=== PATIENT | male | born 1955 | race Caucasian/White ===

== ENCOUNTER 2017-08-27 17:37 | Emergency (ER) | payer SELFPAY ==
[2017-08-27 18:11] LABS: #Basophils 0.1 thou/uL (0.0-0.2); #Eosinphils 0.2 thou/uL (0.0-0.7); #Lymphocytes 1.9 thou/uL (1.20-3.40); #Monocytes 0.5 thou/uL (0.11-0.59); #Neutrophils 4.5 thou/uL (1.40-6.50); %Basophils 0.9 % (0.0-1.0); %Eosinophils 2.5 % (0.0-10.0); %Lymphocytes 26.9 % (21.0-51.0); %Monocytes 7.6 % (0.0-10.0); %Neutrophils 62.2 % (42.0-75.0); Hemoglobin 17.4 g/dL (14.0-18.0); Mean Corpuscular HGB CONC 35.1 g/dL (32.0-36.0); Mean Corpuscular Hemoglobin 32.1 pg (27.0-31.0); Mean Corpuscular Volume 91.6 fl (80.0-94.0); Mean Platelet Volume 6.9 fL (7.4-10.4); Platelet Count 101 thou/uL (130-400); RBC Distribution Width 11.8 % (11.5-14.5); Red Blood Cell (RBC) Count 5.41 mill/uL (4.70-6.10); White Blood Cell (WBC) Count 7.2 thou/uL (4.8-10.8)
[2017-08-27 18:19] LABS: ALT (SGPT) 139 U/L (8-55); AST (SGOT) 102 U/L (5-34); Alkaline Phosphatase 71 U/L (40-150); Anion Gap 10 mmol/L (10-20); BUN (Urea Nitrogen) 22 mg/dL (8.4-25.7); Bilirubin, Total 0.7 mg/dL (0.2-1.2); Calc. Creatinine Clearance 0 mL/min (70-130); Calcium 9.7 mg/dL (7.8-10.44); Carbon Dioxide 26 mmol/L (23-31); Chloride 106 mmol/L (98-107); Estimated GFR-MDRD 79; Globulin 3.2 g/dL (2.4-3.5); Glucose 95 mg/dL (80-115); Potassium 4.3 mmol/L (3.5-5.1); Protein, Total 7.2 g/dL (5.8-8.1); Sodium 138 mmol/L (136-145)
[2017-08-27 18:23] LABS: PLT Morphology Comment Appears Decreased; RBC Morphology Normal
[2017-08-27] MEDS ORDERED: Cyclobenzaprine 10 MG TAB ONE (19:57)
[2017-08-27 20:12] LABS: Bilirubin Negative (Negative); Blood, Urine Negative (Negative); Clarity CLEAR (Clear); Glucose, Urine (Dipstick) Negative (Negative); Leukocyte Negative (Negative); Nitrite Negative (Negative); Protein, Urine (Dipstick) Negative (Neg-Trace); Specific Gravity, Urine 1.024 (1.002-1.036)
== END 2017-08-27 20:45 | disposition home or self-care (01) ==
LOC: ERS 17:37
DX: M62.830 Muscle spasm of back (principal); R74.0 Nonspecific elevation of levels of transaminase and lactic acid dehydrogenase [LDH]; E03.9 Hypothyroidism, unspecified; I10 Essential (primary) hypertension; Z79.82 Long term (current) use of aspirin; Z79.899 Other long term (current) drug therapy
CPT/HCPCS: 36415; 80053; 81003; 83605; 84443; 85025; 99283

== ENCOUNTER 2017-11-17 01:40 | Emergency (ER) | payer SELFPAY ==
[2017-11-17 02:16] LABS: #Basophils 0.1 thou/uL (0.0-0.2); #Eosinphils 0.2 thou/uL (0.0-0.7); #Monocytes 0.6 thou/uL (0.11-0.59); #Neutrophils 5.9 thou/uL (1.40-6.50); %Basophils 0.5 % (0.0-1.0); %Eosinophils 2.2 % (0.0-10.0); %Lymphocytes 37.1 % (21.0-51.0); %Monocytes 5.6 % (0.0-10.0); %Neutrophils 54.7 % (42.0-75.0); Hemoglobin 16.2 g/dL (14.0-18.0); Mean Corpuscular HGB CONC 36.4 g/dL (32.0-36.0); Mean Corpuscular Hemoglobin 32.6 pg (27.0-31.0); Mean Corpuscular Volume 89.7 fL (78.0-98.0); Mean Platelet Volume 6.4 fL (7.4-10.4); Platelet Count 129 thou/uL (130-400); RBC Distribution Width 12.5 % (11.5-14.5); Red Blood Cell (RBC) Count 4.96 mill/uL (4.70-6.10); White Blood Cell (WBC) Count 10.8 thou/uL (4.8-10.8)
[2017-11-17 02:28] LABS: Acetaminophen Less than 6.0 mcg/mL (10.0-30.0); Alcohol 228 mg/dL (Less than 10); Salicylate Less than 8.0 mg/dL (15.0-30.0)
[2017-11-17 02:29] LABS: ALT (SGPT) 239 U/L (8-55); AST (SGOT) 208 U/L (5-34); Albumin 4.3 g/dL (3.4-4.8); Alcohol 228 mg/dL (Less than 10); Alkaline Phosphatase 97 U/L (40-150); Anion Gap 18 mmol/L (10-20); BUN (Urea Nitrogen) 20 mg/dL (8.4-25.7); Bilirubin, Total 1.1 mg/dL (0.2-1.2); Calc. Creatinine Clearance 0 mL/min (70-130); Calcium 9.5 mg/dL (7.8-10.44); Carbon Dioxide 21 mmol/L (23-31); Chloride 103 mmol/L (98-107); Estimated GFR-MDRD 79; Globulin 3.5 g/dL (2.4-3.5); Glucose 98 mg/dL (80-115); Potassium 3.7 mmol/L (3.5-5.1); Protein, Total 7.8 g/dL (5.8-8.1); Sodium 138 mmol/L (136-145)
[2017-11-17] MEDS ORDERED: Multivitamins, Adult 10 ML, Thiamine HCl 100 MG, Folic Acid 1 MG in Dextrose 5 %-0.45 %... IV SCH (03:00)
[2017-11-17 07:20] LABS: Medtox Reader # READER 4; Phencyclidine (PCP) Not Detected (NotDetected); THC/Cannabinoid Screen Not Detected (NotDetected)
[2017-11-17 07:21] LABS: Amphetamine Not Detected (NotDetected); Barbiturates Screen Not Detected (NotDetected); Benzodiazepine Screen Detected (NotDetected); Cocaine Metabolite Screen Not Detected (NotDetected); Medtox Control Line Valid? VALID (VALID); Methadone Not Detected (NotDetected); Methamphetamine Not Detected (NotDetected); Opiate Screen Not Detected (NotDetected); Oxycodone Screen Not Detected (NotDetected); Tricyclic Screen Not Detected (NotDetected)
[2017-11-17] MEDS ORDERED: Lorazepam 2 MG/ML VIAL ONE (14:08)
[2017-11-17 16:53] LABS: Free T4 (Free Thyroxine) 0.8 ng/dL (0.70-1.48)
[2017-11-17] MEDS ORDERED: Gabapentin 300 MG CAP PO SCH ×2 (20:00→21:00)
[2017-11-17] MEDS ORDERED: Folic Acid 1 MG TAB PO SCH (20:00)
[2017-11-17] MEDS ORDERED: risperiDONE 3 MG TAB PO SCH (20:00)
[2017-11-17] MEDS ORDERED: Doxazosin 2 MG TAB PO SCH (20:00)
[2017-11-17] MEDS ORDERED: Levothyroxine Sodium 25 MCG TAB PO SCH (20:00)
[2017-11-18] MEDS ORDERED: Levothyroxine Sodium 25 MCG TAB PO SCH (06:00)
[2017-11-18] MEDS ORDERED: Doxazosin 2 MG TAB PO SCH (09:00)
[2017-11-18] MEDS ORDERED: Folic Acid 1 MG TAB PO SCH (09:00)
[2017-11-18] MEDS ORDERED: risperiDONE 3 MG TAB PO SCH (21:00)
--- NOTE | 2017-11-21 12:51 | EKG ---
Test Reason : Blood Pressure : / mmHG Vent. Rate : 092 BPM Atrial Rate : 092 BPM P-R Int : 158 ms QRS Dur : 092 ms QT Int : 366 ms P-R-T Axes : 055 052 043 degrees QTc Int : 452 ms Normal sinus rhythm Normal ECG Confirmed by EVITA CALLAWAY ([id number]), editor sound GRAHAM MCGILL ([id number]) on 11/21/2017 12:51:08 PM Referred By: Confirmed By:EVITA CALLAWAY
== END 2017-11-18 01:07 ==
LOC: ERS 01:40
DX: S41.112A Laceration without foreign body of left upper arm, initial encounter (principal); S41.111A Laceration without foreign body of right upper arm, initial encounter; E03.9 Hypothyroidism, unspecified; I10 Essential (primary) hypertension; F41.9 Anxiety disorder, unspecified; F32.9 Major depressive disorder, single episode, unspecified; Z79.899 Other long term (current) drug therapy; X78.9XXA Intentional self-harm by unspecified sharp object, initial encounter
CPT/HCPCS: 36415; 80053; 80306; 80307; 84439; 84443; 84481; 85025; 93005; 96361; 96365; 96366; 96375; J2060; J3411; J7042

== ENCOUNTER 2018-01-20 16:40 | Emergency (ER) | payer SELFPAY ==
[2018-01-20 17:53] LABS: Amphetamine Not Detected (NotDetected); Barbiturates Screen Not Detected (NotDetected); Benzodiazepine Screen Not Detected (NotDetected); Cocaine Metabolite Screen Not Detected (NotDetected); Medtox Reader # READER 4; Methadone Not Detected (NotDetected); Methamphetamine Not Detected (NotDetected); Opiate Screen Not Detected (NotDetected); Phencyclidine (PCP) Not Detected (NotDetected); THC/Cannabinoid Screen Not Detected (NotDetected); Tricyclic Screen Not Detected (NotDetected)
[2018-01-20 17:54] LABS: Medtox Control Line Valid? VALID (VALID); Oxycodone Screen Not Detected (NotDetected)
[2018-01-20 18:02] LABS: #Basophils 0.1 thou/uL (0.0-0.2); #Eosinphils 0.1 thou/uL (0.0-0.7); #Lymphocytes 3.4 thou/uL (1.20-3.40); #Monocytes 0.7 thou/uL (0.11-0.59); #Neutrophils 7.3 thou/uL (1.40-6.50); %Basophils 0.8 % (0.0-1.0); %Eosinophils 1.1 % (0.0-10.0); %Lymphocytes 29.2 % (21.0-51.0); %Monocytes 5.8 % (0.0-10.0); %Neutrophils 63.1 % (42.0-75.0); Mean Corpuscular HGB CONC 35.8 g/dL (32.0-36.0); Mean Corpuscular Hemoglobin 32.4 pg (27.0-31.0); Mean Corpuscular Volume 90.5 fL (78.0-98.0); Mean Platelet Volume 6.3 fL (7.4-10.4); Platelet Count 142 thou/uL (130-400); RBC Distribution Width 12.7 % (11.5-14.5); Red Blood Cell (RBC) Count 5.26 mill/uL (4.70-6.10); White Blood Cell (WBC) Count 11.6 thou/uL (4.8-10.8)
[2018-01-20 18:25] LABS: ALT (SGPT) 203 U/L (8-55); AST (SGOT) 266 U/L (5-34); Acetaminophen Less than 6.0 mcg/mL (10.0-30.0); Albumin 4.1 g/dL (3.4-4.8); Alcohol 261 mg/dL (Less than 10); Alkaline Phosphatase 84 U/L (40-150); Anion Gap 16 mmol/L (10-20); BUN (Urea Nitrogen) 17 mg/dL (8.4-25.7); Bilirubin, Total 1.5 mg/dL (0.2-1.2); CK (CPK) 89 U/L (30-200); Calc. Creatinine Clearance 0 mL/min (70-130); Calcium 8.8 mg/dL (7.8-10.44); Carbon Dioxide 21 mmol/L (23-31); Chloride 110 mmol/L (98-107); Estimated GFR-MDRD 88; Globulin 3.3 g/dL (2.4-3.5); Glucose 108 mg/dL (80-115); Protein, Total 7.4 g/dL (5.8-8.1); Salicylate Less than 8.0 mg/dL (15.0-30.0); Sodium 143 mmol/L (136-145)
== END 2018-01-20 19:33 | disposition home or self-care (01) ==
LOC: ERS 16:40
DX: S41.112A Laceration without foreign body of left upper arm, initial encounter (principal); F10.129 Alcohol abuse with intoxication, unspecified; E03.9 Hypothyroidism, unspecified; I10 Essential (primary) hypertension; Z79.899 Other long term (current) drug therapy; X78.9XXA Intentional self-harm by unspecified sharp object, initial encounter
CPT/HCPCS: 36415; 80053; 80306; 80307; 82550; 84443; 85025; 93005

== ENCOUNTER 2018-07-24 23:26 | Emergency (ER) | payer SELFPAY ==
[2018-07-25 00:23] LABS: Bilirubin Negative (Negative); Blood, Urine Negative (Negative); Clarity CLEAR (Clear); Glucose, Urine (Dipstick) Negative (Negative); Leukocyte Negative (Negative); Nitrite Negative (Negative); Protein, Urine (Dipstick) Negative (Neg-Trace); Specific Gravity, Urine 1.002 (1.002-1.036); pH, Urine 5.5 (5.0-9.0)
[2018-07-25 00:32] LABS: Amphetamine Not Detected (NotDetected); Barbiturates Screen Not Detected (NotDetected); Benzodiazepine Screen Not Detected (NotDetected); Cocaine Metabolite Screen Not Detected (NotDetected); Medtox Reader # READER 4; Methadone Not Detected (NotDetected); Methamphetamine Not Detected (NotDetected); Opiate Screen Not Detected (NotDetected); Oxycodone Screen Not Detected (NotDetected); Phencyclidine (PCP) Not Detected (NotDetected); THC/Cannabinoid Screen Not Detected (NotDetected); Tricyclic Screen Not Detected (NotDetected)
[2018-07-25 00:33] LABS: Medtox Control Line Valid? VALID (VALID)
[2018-07-25 00:52] LABS: Hemoglobin 15.1 g/dL (14.0-18.0); Mean Corpuscular Hemoglobin 33.6 pg (27.0-31.0); Mean Corpuscular Volume 93.3 fL (78.0-98.0); RBC Distribution Width 12.3 % (11.5-14.5); Red Blood Cell (RBC) Count 4.51 mill/uL (4.70-6.10); White Blood Cell (WBC) Count 7.2 thou/uL (4.8-10.8)
[2018-07-25 01:04] LABS: ALT (SGPT) 197 U/L (8-55); AST (SGOT) 193 U/L (5-34); Acetaminophen Less than 6.0 mcg/mL (10.0-30.0); Alcohol 246 mg/dL (Less than 10); Alkaline Phosphatase 83 U/L (40-150); Anion Gap 16 mmol/L (10-20); BUN (Urea Nitrogen) 5 mg/dL (8.4-25.7); Bilirubin, Total 1.2 mg/dL (0.2-1.2); Calc. Creatinine Clearance 0 mL/min (70-130); Calcium 9.3 mg/dL (7.8-10.44); Carbon Dioxide 22 mmol/L (23-31); Chloride 104 mmol/L (98-107); Estimated GFR-MDRD 80; Globulin 3.1 g/dL (2.4-3.5); Glucose 119 mg/dL (80-115); Potassium 3.6 mmol/L (3.5-5.1); Protein, Total 7.1 g/dL (5.8-8.1); Salicylate Less than 8.0 mg/dL (15.0-30.0); Sodium 138 mmol/L (136-145)
[2018-07-25 01:06] LABS: #Eosinphils 0.2 thou/uL (0.0-0.7); #Lymphocytes 1.8 thou/uL (1.20-3.40); #Monocytes 0.3 thou/uL (0.11-0.59); #Neutrophils 4.8 thou/uL (1.40-6.50); %Basophils 0.2 % (0.0-1.0); %Eosinophils 3.1 % (0.0-10.0); %Monocytes 4.5 % (0.0-10.0); %Neutrophils 67.1 % (42.0-75.0); Mean Platelet Volume 7.5 fL (7.4-10.4); Platelet Count 69 thou/uL (130-400); Platelet Morphology Comment Appears Decreased; RBC Morphology Normal
[2018-07-25] MEDS ORDERED: Bacitracin Zinc 1 Packet ONE (03:11)
[2018-07-25 04:06] LABS: Troponin I Less than 0.010 ng/mL (< 0.028)
[2018-07-25] MEDS ORDERED: Nicotine 14 MG PATCH TOP SCH (04:30)
[2018-07-25] MEDS ORDERED: Ibuprofen 200 MG TAB ONE (04:36)
[2018-07-25 07:33] LABS: Troponin I Less than 0.010 ng/mL (< 0.028)
--- NOTE | 2018-07-25 08:17 | RAD ---
CHEST 1 VIEW: Date: 07/25/18 INDICATION: Left arm laceration, chest pain. COMPARISON: None. FINDINGS: Lungs are clear. Heart size is normal. Chronic osseous changes are present. No definite acute osseous abnormality is noted. IMPRESSION: No acute abnormality. POS: BH
[2018-07-25] MEDS ORDERED: busPIRone HCl 5 MG TAB PO SCH (09:30)
[2018-07-25] MEDS ORDERED: Levothyroxine Sodium 25 MCG TAB PO SCH (09:30)
[2018-07-26] MEDS ORDERED: Levothyroxine Sodium 25 MCG TAB PO SCH (06:00)
== END 2018-07-25 16:15 | disposition home or self-care (01) ==
LOC: ERS 23:26
DX: S60.812A Abrasion of left wrist, initial encounter (principal); S40.212A Abrasion of left shoulder, initial encounter; E03.9 Hypothyroidism, unspecified; F32.9 Major depressive disorder, single episode, unspecified; I10 Essential (primary) hypertension; F17.210 Nicotine dependence, cigarettes, uncomplicated; Z79.899 Other long term (current) drug therapy; W26.9XXA Contact with unspecified sharp object(s), initial encounter
CPT/HCPCS: 36415; 71045; 80053; 80306; 80307; 81003; 84443; 84484; 85025; 93005

== ENCOUNTER 2018-09-11 12:17 | Emergency (ER) | payer SELFPAY ==
--- NOTE | 2018-09-11 13:05 | RAD ---
XR Foot Lt 3 View STANDARD: 09/11/2018 12:22 PM CLINICAL INDICATION: Pain, infection COMPARISON: None. FINDINGS: Fracture:No fracture. Arthropathy:Moderate arthropathy. Most pronounced at the first ray. Incidental findings:None of significance. IMPRESSION: 1. No acute osseous abnormality.
[2018-09-11] MEDS ORDERED: Ketorolac Tromethamine 30 MG/ML VIAL ONE (13:26)
== END 2018-09-11 13:34 | disposition home or self-care (01) ==
LOC: ERS 12:17
DX: L02.612 Cutaneous abscess of left foot (principal); Z71.6 Tobacco abuse counseling; E03.9 Hypothyroidism, unspecified; I10 Essential (primary) hypertension; F17.210 Nicotine dependence, cigarettes, uncomplicated
CPT/HCPCS: 96372; 99406; J1885

== ENCOUNTER 2018-10-01 13:09 | Inpatient (IN) | payer SELFPAY ==
--- NOTE | 2018-10-01 13:41 | RAD ---
XR Foot Lt 3 View STANDARD History: [Foot pain. Infection in between toes.] Comparison: Radiograph September 11, 2018 Findings: There is concern for possible second density seen between the great toe and second toe. No acute fracture. No periostitis or erosions. Impression: Suggestion of subcutaneous emphysema between the second toe and the great toe at the lev el of the proximal phalanges. If there is concern for osteomyelitis, MRI is recommended.
[2018-10-01] MEDS ORDERED: Clindamycin/D5W 900 mg/50 ml Premix Bag ONE (13:53)
[2018-10-01 14:02] LABS: #Eosinphils 0.2 thou/uL (0.0-0.7); #Lymphocytes 1.5 thou/uL (1.20-3.40); #Monocytes 0.6 thou/uL (0.11-0.59); #Neutrophils 5.9 thou/uL (1.40-6.50); %Basophils 0.4 % (0.0-1.0); %Eosinophils 2.9 % (0.0-10.0); %Lymphocytes 17.9 % (21.0-51.0); %Monocytes 7.2 % (0.0-10.0); %Neutrophils 71.6 % (42.0-75.0); Hemoglobin 16.5 g/dL (14.0-18.0); Mean Corpuscular HGB CONC 35.2 g/dL (32.0-36.0); Mean Corpuscular Hemoglobin 32.9 pg (27.0-31.0); Mean Corpuscular Volume 93.3 fL (78.0-98.0); Platelet Count 102 thou/uL (130-400); RBC Distribution Width 12.6 % (11.5-14.5); White Blood Cell (WBC) Count 8.2 thou/uL (4.8-10.8)
[2018-10-01 14:15] LABS: ALT (SGPT) 67 U/L (8-55); AST (SGOT) 54 U/L (5-34); Albumin 4.2 g/dL (3.4-4.8); Alkaline Phosphatase 72 U/L (40-150); Anion Gap 14 mmol/L (10-20); BUN (Urea Nitrogen) 16 mg/dL (8.4-25.7); Bilirubin, Total 1.5 mg/dL (0.2-1.2); Calc. Creatinine Clearance 0 mL/min (70-130); Calcium 9.8 mg/dL (7.8-10.44); Carbon Dioxide 25 mmol/L (23-31); Chloride 104 mmol/L (98-107); Estimated GFR-MDRD 75; Globulin 3.2 g/dL (2.4-3.5); Glucose 98 mg/dL (80-115); Potassium 4.6 mmol/L (3.5-5.1); Protein, Total 7.4 g/dL (5.8-8.1); Sodium 138 mmol/L (136-145)
[2018-10-01] MEDS ORDERED: Morphine 4 MG/ML VIAL ONE (14:43)
[2018-10-01] MEDS ORDERED: Ondansetron ODT 8 MG TAB ONE (14:44)
[2018-10-01] MEDS ORDERED: Cefepime 2 GM VIAL ONE (15:23)
[2018-10-01] MEDS ORDERED: Piperacillin/Tazobactam 4.5 GM VIAL ONE ×2 (15:42→16:26)
[2018-10-01] MEDS ORDERED: Vancomycin HCl 1 GM in Premix Bag 1 BAG IVPB SCH ×3 (18:00→21:00)
[2018-10-01] MEDS ORDERED: Ondansetron ODT 4 MG TAB PO PRN (20:10)
[2018-10-01] MEDS ORDERED: hydrALAZINE 20 MG/ML VIAL SLOW IVP PRN (20:10)
[2018-10-01] MEDS ORDERED: Acetaminophen 325 MG TAB PO PRN (20:10)
[2018-10-01] MEDS ORDERED: Ondansetron PF 4 MG/2 ML Vial IVP PRN (20:10)
[2018-10-01] MEDS: HYDROcodone/Acetaminophen 5/325 mg Tablet PO PRN (20:39)
[2018-10-01 20:58] VITALS: BMI 27.4
[2018-10-01] MEDS: Nicotine 14 MG PATCH TD SCH (21:19)
[2018-10-01 21:27] LABS: Free T4 (Free Thyroxine) 1.18 ng/dL (0.70-1.48); Thyroid Stimulating Hormone 6.1509 uIU/mL (0.35-4.94)
--- NOTE | 2018-10-01 21:52 | HP ---
The patient's primary care is through the [facility]. HISTORY OF PRESENT ILLNESS: Mr. Troncoso is a pleasant 63-year-old gentleman, who has a history of hypertension as well as hypothyroidism. He also smokes cigarettes daily. 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 He had come to the emergency room few days ago and was prescribed Bactrim, but this did not help. He continued to work during this time as well. The swelling got progressively worse and he started having drainage. He also says that he got so sick that he started having chills and a decrease in his appetite as well as having some nausea and for this reason, he came into the emergency room for evaluation. In the ER, he was found to have redness and discoloration of the toe and an x-ray demonstrated some subcutaneous emphysema between the second and great toe on the left foot and for this reason, he is being admitted for further evaluation. REVIEW OF SYSTEMS: All systems were reviewed and are negative except for that mentioned in the history of present illness. PAST MEDICAL HISTORY: Significant for hypertension and hypothyroidism. PAST SURGICAL HISTORY: He broke his left leg, but there was no surgical repair. ALLERGIES: NO KNOWN DRUG ALLERGIES. SOCIAL HISTORY: He is . He has 2 children. He smokes about a pack a day for 40 years. He says he drinks only seldom. FAMILY HISTORY: No history of any heritable diseases. MEDICATIONS: He says he used to be on lisinopril, but no longer takes this and takes a multivitamin. PHYSICAL EXAMINATION: GENERAL: He is alert and oriented. He appears to be in no acute distress. He is well developed and well nourished. VITAL SIGNS: Blood pressure was 143/80, heart rate 85, respiratory rate of 18, temperature is 97.9. HEENT: His pupils are equal, round, and reactive to light. Extraocular muscles are intact. His sclerae are anicteric. Throat, there is no erythema, no exudates. NECK: No adenopathy. No bruits. LUNGS: Clear to auscultation. There is no wheezing, no rales, no rhonchi. CARDIOVASCULAR: He had a normal S1, S2. There is no S3 or S4. No murmurs, clicks or rubs. ABDOMEN: Obese. It is soft, nontender, and nondistended. Positive for bowel sounds. There is no rebound. No guarding. No organomegaly. EXTREMITIES: There is no edema and no joint effusions. NEUROLOGIC: His cranial nerves 2 through 12 are grossly intact and his muscle strength is 5/5 in both his upper and lower extremities. SKIN AND INTEGUMENT: On the left foot, between the first and second toe, there is some serosanguineous drainage and also the second toe appears to be irregular and also enlarged and is exquisitely tender to palpation. He also has bunions on both feet. He also has some skin discoloration suggestive of chronic venous stasis. LABORATORY DATA: Lab results, the white blood cell count is 8.2, hemoglobin 16.5, hematocrit is 46.7, and platelet count is 102. The sodium is 138, potassium 4.6, chloride is 104, CO2 is 25, BUN of 16, creatinine 1.01, glucose is 98, total bilirubin is 1.5, AST is 54, ALT is 67. Again, on plain x-ray, he had some subcutaneous emphysema between the second and great toe to the level of the proximal phalanges. ASSESSMENT: 1. This is a pleasant 63-year-old gentleman, who presents to the emergency room with cellulitis of the foot, which has failed outpatient treatment. There is also concern that there could be deeper and infectious involvement based on the x-ray of the foot. Therefore, he will be admitted to the medical floor, started on empiric IV antibiotics. We will obtain an MRI of the foot to rule out osteomyelitis and if this is present, he may need a surgical consultation. We will also consult Wound Care. His risk factors for nonhealing include his current job as well as the tobacco abuse. 2. Hypertension. Currently, his blood pressure is controlled. We will place him on p.r.n. medication as he said he was not on any scheduled medicine at this time. 3. Hypothyroidism. He appears to be clinically euthyroid. We will check his thyroid functions as he does not appear to be on any supplementation. 4. Tobacco abuse. He has been counseled on the need to quit and says he would be willing to try a nicotine patch. Job ID: [id number]
[2018-10-02] MEDS: Piperacillin/Tazobactam 3.375 GM in Sodium Chloride 0.9% 100 ML IVPB SCH ×4 (00:02→18:25)
[2018-10-02] MEDS: HYDROcodone/Acetaminophen 5/325 mg Tablet PO PRN ×6 (00:02→21:31)
[2018-10-02] MEDS: Vancomycin HCl 1.25 GM in Sodium Chloride 0.9% 250 ML 250 ML IVPB SCH ×2 (04:00→16:31)
[2018-10-02] MEDS: Famotidine 20 MG TAB PO SCH ×3 (07:41→20:40)
[2018-10-02] MEDS: Enoxaparin Sodium 40 MG/0.4 ML SYRINGE SC SCH (07:41)
[2018-10-02 07:59] LABS: #Eosinphils 0.3 thou/uL (0.0-0.7); #Lymphocytes 1.3 thou/uL (1.20-3.40); #Monocytes 0.5 thou/uL (0.11-0.59); #Neutrophils 5.1 thou/uL (1.40-6.50); %Basophils 0.6 % (0.0-1.0); %Eosinophils 3.7 % (0.0-10.0); %Lymphocytes 17.9 % (21.0-51.0); %Monocytes 7.3 % (0.0-10.0); %Neutrophils 70.5 % (42.0-75.0); Hemoglobin 15.1 g/dL (14.0-18.0); Mean Corpuscular HGB CONC 34.7 g/dL (32.0-36.0); Mean Corpuscular Hemoglobin 32.2 pg (27.0-31.0); Mean Corpuscular Volume 92.6 fL (78.0-98.0); Mean Platelet Volume 7.1 fL (7.4-10.4); Platelet Count 97 thou/uL (130-400); RBC Distribution Width 12.4 % (11.5-14.5); Red Blood Cell (RBC) Count 4.69 mill/uL (4.70-6.10); White Blood Cell (WBC) Count 7.2 thou/uL (4.8-10.8)
[2018-10-02 08:11] LABS: Anion Gap 12 mmol/L (10-20); BUN (Urea Nitrogen) 20 mg/dL (8.4-25.7); Calc. Creatinine Clearance 80 mL/min (70-130); Calcium 8.8 mg/dL (7.8-10.44); Carbon Dioxide 25 mmol/L (23-31); Chloride 103 mmol/L (98-107); Estimated GFR-MDRD 67; Glucose 89 mg/dL (80-115); Potassium 4.4 mmol/L (3.5-5.1); Sodium 136 mmol/L (136-145)
--- NOTE | 2018-10-02 11:47 | MRI ---
MR of the left forefoot and midfoot without contrast INDICATION: History of left second toe cellulitis; concern for osteomyelitis COMPARISON: Left foot radiograph dated October 01, 2018 FINDINGS: There is abnormal marrow signal intensity and cortical irregularity involving the medial as pect of the second digit proximal phalangeal shaft and phalangeal head. Additional signal abnormality is seen involving the second digit middle phalanx. There is soft tissue swelling involvin g the left second digit predominantly medially. No definite drainable fluid collection is evident. There is a bifid tibial great toe sesamoid. There is moderate great toe MTP osteoarthrosis. The Lisfr anc ligament is intact. IMPRESSION: Cellulitis of the left foot second digit with changes of osteomyelitis involving the medi al aspect of the left second digit proximal phalangeal shaft and head. There is also abnormal marrow signal involving the left second digit middle phalanx also suspicious for changes of early ost eomyelitis.
--- NOTE | 2018-10-02 15:13 | PDOC.PN ---
- Subjective Encounter Start Date: 10/02/18 Encounter Start Time: 15:11 Mr. Troncoso was seen today in follow-up of infection in the 2nd toe of the left foot. He does not have any complaints. He still notes some soreness in the 2nd toe. - Objective Resuscitation Status - Order Detail: 10/01/18 18:04 Resuscitation Status Routine Resuscitation Status: FULL: Full Resuscitation MAR Reviewed: Yes Vital Signs & Weight: Vital Signs (12 hours) Temp Pulse Resp BP Pulse Ox 10/02/18 08:00 100 10/02/18 07:15 97.9 F 67 18 118/77 100 Weight Weight 180 lb 8 oz Result Diagrams: 10/02/18 07:19 10/02/18 07:19 Phys Exam - Physical Examination HEENT: PERRLA Respiratory: no wheezing, no rales, no rhonchi, clear to auscultation bilateral Cardiovascular: RRR, no significant murmur, no rub Gastrointestinal: soft, non-tender, no distention, positive bowel sounds + erythema and swelling of the 2nd toe Neurological: non-focal, normal sensation Dx/Plan (1) Osteomyelitis of second toe of left foot Code(s): M86.9 - OSTEOMYELITIS, UNSPECIFIED Status: Acute (2) Tobacco abuse Code(s): Z72.0 - TOBACCO USE Status: Acute (3) Hypertension Code(s): I10 - ESSENTIAL (PRIMARY) HYPERTENSION Status: Acute (4) Hypothyroidism Code(s): E03.9 - HYPOTHYROIDISM, UNSPECIFIED Status: Acute - Plan * Osteomyelitis of the 2nd toe of the left foot- continue IV antibiotics, Vancomycin and Zosyn * MRI results were noted. He has Osteomyelitis of the 2nd toe * Will consult ID. * HTN- blood pressure is controlled off medication so far * Hypothyroidism- - his free T4 is normal ( subclinical hypothyroidism)- will monitor
[2018-10-02] MEDS: Nicotine 14 MG PATCH TD SCH (20:40)
[2018-10-02 22:30] LABS: HBSAB Concentration 2.88 mIU/mL; HBSAg Index 0.34 S/CO (0-0.99); Hep B Surf AB Non-Reactive (NonReactive); Hep B Surf Ag Non-Reactive S/CO (NonReactive)
[2018-10-02 22:42] LABS: Hep C IgG Ab Reflex HepC Qnt (NonReactive); Hep C Index 13.33 S/CO (0-0.79)
[2018-10-03] MEDS: Piperacillin/Tazobactam 3.375 GM in Sodium Chloride 0.9% 100 ML IVPB SCH ×5 (00:35→23:29)
[2018-10-03] MEDS: HYDROcodone/Acetaminophen 5/325 mg Tablet PO PRN ×5 (01:26→20:25)
--- NOTE | 2018-10-03 02:21 | CON ---
DATE OF CONSULTATION: 10/02/2018 REASON FOR CONSULTATION: Left second toe inflammatory changes. HISTORY OF PRESENT ILLNESS: A 63-year-old gentleman with history of hypertension and chronic smoking, who has developed inflammatory changes with progressively worsening pain in the left second toe medial aspect associated with swelling. He went to the emergency room few days ago, was given Bactrim, but that did not result in improvement and he was eventually admitted. The patient has had an MRI, which showed findings consistent with osteomyelitis of the second toe. Other than that, he denies any headaches. No visual symptoms, sore throat, odynophagia, or dysphagia. No cough, sputum production, or chest pain. No abdominal pain or diarrhea. No genitourinary symptoms. No other joint symptoms. PAST MEDICAL HISTORY: Hypertension and hypothyroidism. PAST SURGICAL HISTORY: Leg fracture, which was managed with cast. ALLERGIES: NONE. SOCIAL HISTORY: . Current smoker. Drinks rarely. 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 FAMILY HISTORY: Noncontributory. CURRENT MEDICATIONS: 1. Tylenol. 2. [place]. 3. Lovenox. 4. Pepcid. 5. Apresoline. 6. Zofran. 7. Zosyn. 8. Vancomycin. PHYSICAL EXAMINATION: VITAL SIGNS: T-max 98.1, blood pressure 120/70, pulse 70, and respirations 16. SKIN: Shows the left second toe with slit-like opening and a pinhole in the middle aspect of this slit. In the medial aspect of the left second toe around this slit-like wound, there is an area of blanching of the skin and hyperkeratosis. There is moderate erythema surrounding the area. The area is markedly tender. LYMPH: No lymphadenopathy. HEENT: Ocular movements conjugate. Oral cavity with no remaining [place] teeth. NECK: Supple. No jugular vein distention or carotid bruits. LUNGS: Symmetric. Clear breath sounds. HEART: S1, S2. Regular rate. No S3 or S4. ABDOMEN: Soft, not distended or tender. No ascites. : No bladder distention. EXTREMITIES: Pulses are 1+ in dorsalis pedis. No edema. Moves extremities equally. NEURO: Cognitive function appears to be intact. LABORATORY DATA: White cell count 8.2 and 7.2, hemoglobin 15, and platelets 97 with 70% neutrophils. Sodium 138, creatinine 1.01, AST 54, ALT 67, and TSH 6.1. Microbiology with Staphylococcus aureus, pending susceptibilities. IMAGING STUDIES: The MRI showed findings consistent with osteomyelitis of the left second toe. Foot x-ray with subcutaneous emphysema between the second and great toe at the level of proximal phalanges. ASSESSMENT: Chronic smoking, intertrigo with pressure injury to the medial aspect of the left second toe with evidence of wound and osteomyelitis of the proximal phalanx. DISCUSSION: The patient has good vascular supply. The management will include either debridement of the area and then antimicrobial therapy guided by the culture results or a full amputation of the toe. Recommend consultation with internet merchant. Amputation is more likely to result in a permanent resolution of the process. In view of the thrombocytopenia and the abnormal liver function tests, possibility of chronic liver disease is considered. We advised hepatitis C serological testing and liver ultrasound. Job ID: [id number]
[2018-10-03] MEDS: Vancomycin HCl 1.25 GM in Sodium Chloride 0.9% 250 ML 250 ML IVPB SCH ×2 (04:32→15:44)
[2018-10-03] MEDS: Famotidine 20 MG TAB PO SCH ×2 (08:02→20:25)
[2018-10-03] MEDS: Enoxaparin Sodium 40 MG/0.4 ML SYRINGE SC SCH (08:02)
--- NOTE | 2018-10-03 08:49 | ULT ---
RIGHT UPPER QUADRANT ULTRASOUND: Date: 10/03/18 INDICATION: Abnormal liver panel and thrombocytopenia. COMPARISON: None. FINDINGS: There is a coarse echotexture of the liver with nodular contour, suspicious for cirrhosis. No focal h epatic lesion is evident. Gallbladder is normal appearing. No sonographic Tate's sign reported. Com mon bile duct measures 4 mm. Right kidney measures 10.5 cm in length. No focal renal lesion or hydron ephrosis evident. Visualized aspects of the pancreas are unremarkable appearing. IMPRESSION: Coarse echotexture of the liver with nodular contour suspicious for underlying cirrhosis. POS: BH
--- NOTE | 2018-10-03 14:03 | PDOC.PN ---
- Subjective Encounter Start Date: 10/03/18 Encounter Start Time: 13:00 Mr. Troncoso was seen today in follow-up of osteomyelitis of the toe. He notes continued soreness in the toe. He also has an occasional feeling of dizziness and lightheadedness. Currently he feels fine. - Objective Resuscitation Status - Order Detail: 10/01/18 18:04 Resuscitation Status Routine Resuscitation Status: FULL: Full Resuscitation MAR Reviewed: Yes Vital Signs & Weight: Vital Signs (12 hours) Temp Pulse Resp BP Pulse Ox 10/03/18 12:43 97.9 F 64 18 119/74 94 L 10/03/18 08:18 98.3 F 68 16 130/83 96 10/03/18 05:38 97.9 F 71 15 161/73 H 93 L Weight Admit Weight 180 lb 8 oz Weight 180 lb 8 oz Result Diagrams: 10/02/18 07:19 10/02/18 07:19 Phys Exam - Physical Examination HEENT: PERRLA Respiratory: no wheezing, no rales, no rhonchi, clear to auscultation bilateral Cardiovascular: RRR, no significant murmur, no rub Gastrointestinal: soft, non-tender, no distention, positive bowel sounds Musculoskeletal: pulses present, edema present + dark discoloration of the 2nd toe, with some serous drainage Neurological: non-focal, normal sensation, moves all 4 limbs Dx/Plan (1) Osteomyelitis of second toe of left foot Code(s): M86.9 - OSTEOMYELITIS, UNSPECIFIED Status: Acute (2) Tobacco abuse Code(s): Z72.0 - TOBACCO USE Status: Acute (3) Hypertension Code(s): I10 - ESSENTIAL (PRIMARY) HYPERTENSION Status: Acute (4) Hypothyroidism Code(s): E03.9 - HYPOTHYROIDISM, UNSPECIFIED Status: Acute - Plan * Osteomyelitis of the toe- wound culture is growing Staph which appears to be MSSA. * Will continue the current antibiotics * ID recommendations noted- will consult Podiatry * HTN- blood pressure is stable * Hypothyroidism- stable subclinical hypothyroidism.
[2018-10-03 15:27] LABS: Vancomycin, Trough 12.7 ug/mL
[2018-10-03] MEDS: Nicotine 14 MG PATCH TD SCH (20:26)
[2018-10-04] MEDS: HYDROcodone/Acetaminophen 5/325 mg Tablet PO PRN ×5 (00:37→22:09)
[2018-10-04] MEDS: Vancomycin HCl 1.25 GM in Sodium Chloride 0.9% 250 ML 250 ML IVPB SCH ×2 (03:29→16:42)
[2018-10-04] MEDS: Piperacillin/Tazobactam 3.375 GM in Sodium Chloride 0.9% 100 ML IVPB SCH ×2 (05:54→11:47)
[2018-10-04] MEDS: Enoxaparin Sodium 40 MG/0.4 ML SYRINGE SC SCH (08:43)
[2018-10-04] MEDS: Famotidine 20 MG TAB PO SCH ×2 (08:43→20:08)
[2018-10-04] MEDS: Multivitamin W/ Minerals 1 TAB PO SCH (09:54)
[2018-10-04] MEDS: Levothyroxine Sodium 50 MCG TAB PO SCH (09:54)
--- NOTE | 2018-10-04 14:31 | PDOC.PN ---
- Subjective Encounter Start Date: 10/04/18 Encounter Start Time: 14:29 Subjective: feels OK. no new complaints - Objective Resuscitation Status - Order Detail: 10/01/18 18:04 Resuscitation Status Routine Resuscitation Status: FULL: Full Resuscitation MAR Reviewed: Yes Vital Signs & Weight: Vital Signs (12 hours) Temp Pulse Resp BP Pulse Ox 10/04/18 08:00 97.7 F 66 18 128/75 94 L Weight Admit Weight 180 lb 8 oz Weight 180 lb 8 oz I&O: 10/03/18 10/04/18 10/05/18 06:59 06:59 06:59 Intake Total 3110 240 Balance 3110 240 Result Diagrams: 10/02/18 07:19 10/02/18 07:19 Additional Labs: Microbiology 10/01/18 14:12 Foot - Pending Bacterial Culture - Preliminary Staphylococcus aureus Laboratory Tests 10/01/18 10/02/18 20:34 20:49 TSH 3rd Generation 6.1509 H Hepatitis C Antibody Reflex HepC Qnt H Phys Exam - Physical Examination Constitutional: NAD HEENT: PERRLA, moist MMs, sclera anicteric, oral pharynx no lesions Neck: no nodes, no JVD, supple, full ROM Respiratory: no wheezing, no rales, no rhonchi, clear to auscultation bilateral Cardiovascular: RRR, no significant murmur, no rub Gastrointestinal: soft, non-tender, no distention, positive bowel sounds Musculoskeletal: no edema, pulses present Left foot in dressing. palpable post tibial left foot Neurological: non-focal, normal sensation, moves all 4 limbs Psychiatric: normal affect, A&O x 3 Skin: no rash Dx/Plan (1) Hypertension Code(s): I10 - ESSENTIAL (PRIMARY) HYPERTENSION Status: Acute Comment: cont broad spectrum IV ABx. Follow final Cx results (2) Hypothyroidism Code(s): E03.9 - HYPOTHYROIDISM, UNSPECIFIED Status: Acute (3) Osteomyelitis of second toe of left foot Code(s): M86.9 - OSTEOMYELITIS, UNSPECIFIED Status: Acute (4) Tobacco abuse Code(s): Z72.0 - TOBACCO USE Status: Acute - Plan continue antibiotics, PT/OT, out of bed/ambulate, DVT proph w/SCDs Podiatry consulted for possible I&D Vs Amputation toe for Osteomyelitis -: HD stable -: cont ABx for now -: am labs * . Review of Systems - Review of Systems Constitutional: weakness, malaise. negative: fever, chills, sweats, other ENT: negative: Ear Pain, Ear Discharge, Nose Pain, Nose Discharge, Nose Congestion, Mouth Pain, Mouth Swelling, Throat Pain, Throat Swelling, Other Respiratory: negative: Cough, Dry, Shortness of Breath, Hemoptysis, SOB with Excertion, Pleuritic Pain, Sputum, Wheezing Cardiovascular: negative: chest pain, palpitations, orthopnea, paroxysmal nocturnal dyspnea, edema, light headedness, other Gastrointestinal: negative: Nausea, Vomiting, Abdominal Pain, Diarrhea, Constipation, Melena, Hematochezia, Other Genitourinary: negative: Dysuria, Frequency, Incontinence, Hematuria, Retention , Other Musculoskeletal: Foot Pain. negative: Neck Pain, Shoulder Pain, Arm Pain, Back Pain, Hand Pain, Leg Pain, Other Skin: negative: Rash, Lesions, [place], Bruising, Other Neurological: negative: Weakness, Numbness, Incoordination, Change in Speech, Confusion, Seizures, Other - Medications/Allergies Allergies/Adverse Reactions: Allergies Allergy/AdvReac Type Severity Reaction Status Date / Time No Known Drug Allergies Allergy Verified 10/01/18 21:40 Medications: Current Medications Acetaminophen (Tylenol) 650 mg PO Q4H PRN PRN Reason: Headache/Fever/Mild Pain (1-3) Hydrocodone Bitart/Acetaminophen ([place] 5/325) 1 tab PO Q4H PRN PRN Reason: Moderate Pain (4-6) Last Admin: 10/04/18 09:54 Dose: 1 tab Enoxaparin Sodium (Lovenox) 40 mg SC 0900 [facility] Last Admin: 10/04/18 08:43 Dose: 40 mg Famotidine (Pepcid) 20 mg PO BID [facility] Last Admin: 10/04/18 08:43 Dose: 20 mg Hydralazine HCl (Apresoline) 10 mg SLOW IVP Q4H PRN PRN Reason: SBP > 180 and HR < 70 Piperacillin Sod/Tazobactam (Sod 3.375 gm/ Sodium Chloride) 100 mls @ 200 mls/ hr IVPB Q6HR [facility] Last Admin: 10/04/18 11:47 Dose: 100 mls Vancomycin HCl 1.25 gm/ Sodium (Chloride) 250 mls @ 166.667 mls/hr IVPB 0400, 1600 [facility] Last Admin: 10/04/18 03:29 Dose: 250 mls Iron/Minerals/Multivitamins (Theragran M) 1 tab PO DAILY [facility] Last Admin: 10/04/18 09:54 Dose: 1 tab Levothyroxine Sodium (Synthroid) 50 mcg PO DAILY [facility] Last Admin: 10/04/18 09:54 Dose: 50 mcg Miscellaneous Medication (Pharmacy To Dose) 1 each IVPB PRN PRN PRN Reason: SSSI Nicotine (Nicoderm Patch) 14 mg TD Q24HR [facility] Last Admin: 10/03/18 20:26 Dose: 14 mg Ondansetron HCl (Zofran Odt) 4 mg PO Q6H PRN PRN Reason: Nausea/Vomiting Ondansetron HCl (Zofran) 4 mg IVP Q6H PRN PRN Reason: Nausea/Vomiting Sertraline HCl (Zoloft) 150 mg PO HS CHRISTIANO Sodium Chloride (Flush - Normal Saline) 10 ml IVF Q12HR CHRISTIANO Sodium Chloride (Flush - Normal Saline) 10 ml IVF PRN PRN PRN Reason: Saline Flush
--- NOTE | 2018-10-04 17:52 | PRG ---
DATE OF SERVICE: 10/04/2018 SUBJECTIVE: Mr. Troncoso is having improvement in the pain in the involved toe. I do not think the pantry attendant has seen him yet. The patient denies any respiratory symptoms or abdominal pain. OBJECTIVE: VITAL SIGNS: Normal. LUNGS: Clear. HEART: S1 and S2, regular rate. ABDOMEN: Soft. Not distended. EXTREMITIES: Left second toe still with a slit-like opening, but less erythema, less tenderness. LABORATORY DATA: White cell count 7.2, hemoglobin 15, and platelets 97,000. Hepatitis C antibody was positive. Creatinine normal. Staphylococcus aureus, which is methicillin sensitive, retrieved from the foot. He is currently receiving Zosyn and vancomycin. ASSESSMENT AND DISCUSSION: Chronic smoking; intertrigo with pressure injury, medial aspect of the left second toe with evidence of osteomyelitis, and open sinus tract through the bone. The patient will need surgical debridement, may need an amputation if he wants quick resolution of this process. We will switch him to Rocephin daily. The patient has hepatitis C and will need a hepatitis C RNA PCR and treatment in the outpatient setting. Job ID: [id number]
[2018-10-04] MEDS: cefTRIAXone\\ROCEPHIN 2 GM in Sodium Chloride 0.9% 100 ML IVPB SCH (17:53)
[2018-10-04] MEDS: Nicotine 14 MG PATCH TD SCH (20:08)
[2018-10-05] MEDS: Famotidine 20 MG TAB PO SCH ×2 (08:03→20:37)
[2018-10-05] MEDS: Enoxaparin Sodium 40 MG/0.4 ML SYRINGE SC SCH (08:03)
[2018-10-05] MEDS: Levothyroxine Sodium 50 MCG TAB PO SCH (08:03)
[2018-10-05] MEDS: Multivitamin W/ Minerals 1 TAB PO SCH (08:03)
[2018-10-05 08:20] LABS: Anion Gap 12 mmol/L (10-20); BUN (Urea Nitrogen) 14 mg/dL (8.4-25.7); Calc. Creatinine Clearance 104 mL/min (70-130); Calcium 9.5 mg/dL (7.8-10.44); Carbon Dioxide 23 mmol/L (23-31); Chloride 106 mmol/L (98-107); Estimated GFR-MDRD Greater than 90; Glucose 86 mg/dL (80-115); Potassium 4.1 mmol/L (3.5-5.1); Sodium 137 mmol/L (136-145)
[2018-10-05 11:13] LABS: HCV log10 6.537 (.); Hep C PCR-Quant 3440000 IU/mL (.)
[2018-10-05] MEDS: HYDROcodone/Acetaminophen 5/325 mg Tablet PO PRN ×2 (13:56→20:39)
--- NOTE | 2018-10-05 15:57 | PDOC.PN ---
- Subjective Encounter Start Date: 10/05/18 Encounter Start Time: 15:55 Subjective: feels well. no new complaints -: no significant pain in affected toe -: no F/c - Objective Resuscitation Status - Order Detail: 10/01/18 18:04 Resuscitation Status Routine Resuscitation Status: FULL: Full Resuscitation MAR Reviewed: Yes Vital Signs & Weight: Vital Signs (12 hours) Temp Pulse Resp BP Pulse Ox 10/05/18 08:00 97.8 F 63 18 154/82 H 99 Weight Admit Weight 180 lb 8 oz Weight 180 lb 8 oz I&O: 10/04/18 10/05/18 10/06/18 06:59 06:59 06:59 Intake Total 3110 720 720 Balance 3110 720 720 Result Diagrams: 10/02/18 07:19 10/05/18 07:20 Additional Labs: Microbiology 10/01/18 14:12 Foot - Pending Bacterial Culture - Preliminary Staphylococcus aureus Phys Exam - Physical Examination Constitutional: NAD HEENT: PERRLA, moist MMs, sclera anicteric, oral pharynx no lesions Neck: no nodes, no JVD, supple, full ROM Respiratory: no wheezing, no rales, no rhonchi, clear to auscultation bilateral Cardiovascular: RRR, no significant murmur Gastrointestinal: soft, non-tender, no distention, positive bowel sounds Musculoskeletal: no edema, pulses present Neurological: non-focal, normal sensation, moves all 4 limbs Psychiatric: normal affect, A&O x 3 Skin: no rash Dx/Plan (1) Osteomyelitis of second toe of left foot Code(s): M86.9 - OSTEOMYELITIS, UNSPECIFIED Status: Acute Comment: empiric ABx. on Rocephin now per ID recs.follow Final Cx results. Awaiting podiatry input. May need I&D Vs Toe amputation (2) Hypertension Code(s): I10 - ESSENTIAL (PRIMARY) HYPERTENSION Status: Chronic Comment: BP still high.Add Norvasc.PRN antihypertensives (3) Hypothyroidism Code(s): E03.9 - HYPOTHYROIDISM, UNSPECIFIED Status: Chronic Comment: cont synthyroid (4) Tobacco abuse Code(s): Z72.0 - TOBACCO USE Status: Acute (5) Chronic hepatitis Code(s): K73.9 - CHRONIC HEPATITIS, UNSPECIFIED Status: Suspected Comment: Hep C RNA +ve.Outpt follow up per ID.will need Rx - Plan continue antibiotics, PT/OT, respiratory therapy, incentive spirometry, out of bed/ambulate, DVT proph w/SCDs Podiatry input awiated -: HD stable -: cont ABx for now * . Review of Systems - Review of Systems Constitutional: negative: fever, chills, sweats, weakness, malaise, other ENT: negative: Ear Pain, Ear Discharge, Nose Pain, Nose Discharge, Nose Congestion, Mouth Pain, Mouth Swelling, Throat Pain, Throat Swelling, Other Respiratory: negative: Cough, Dry, Shortness of Breath, Hemoptysis, SOB with Excertion, Pleuritic Pain, Sputum, Wheezing Cardiovascular: negative: chest pain, palpitations, orthopnea, paroxysmal nocturnal dyspnea, edema, light headedness, other Gastrointestinal: negative: Nausea, Vomiting, Abdominal Pain, Diarrhea, Constipation, Melena, Hematochezia, Other Genitourinary: negative: Dysuria, Frequency, Incontinence, Hematuria, Retention , Other Musculoskeletal: negative: Neck Pain, Shoulder Pain, Arm Pain, Back Pain, Hand Pain, Leg Pain, Foot Pain, Other - Medications/Allergies Allergies/Adverse Reactions: Allergies Allergy/AdvReac Type Severity Reaction Status Date / Time No Known Drug Allergies Allergy Verified 10/01/18 21:40 Medications: Current Medications Acetaminophen (Tylenol) 650 mg PO Q4H PRN PRN Reason: Headache/Fever/Mild Pain (1-3) Hydrocodone Bitart/Acetaminophen ([place] 5/325) 1 tab PO Q4H PRN PRN Reason: Moderate Pain (4-6) Last Admin: 10/05/18 13:56 Dose: 1 tab Enoxaparin Sodium (Lovenox) 40 mg SC 0900 [facility] Last Admin: 10/05/18 08:03 Dose: 40 mg Famotidine (Pepcid) 20 mg PO BID [facility] Last Admin: 10/05/18 08:03 Dose: 20 mg Hydralazine HCl (Apresoline) 10 mg SLOW IVP Q4H PRN PRN Reason: SBP > 180 and HR < 70 Ceftriaxone Sodium 2 gm/ (Sodium Chloride) 100 mls @ 200 mls/hr IVPB Q24HR [facility] Last Admin: 10/04/18 17:53 Dose: 100 mls Iron/Minerals/Multivitamins (Theragran M) 1 tab PO DAILY [facility] Last Admin: 10/05/18 08:03 Dose: 1 tab Levothyroxine Sodium (Synthroid) 50 mcg PO DAILY [facility] Last Admin: 10/05/18 08:03 Dose: 50 mcg Nicotine (Nicoderm Patch) 14 mg TD Q24HR [facility] Last Admin: 10/04/18 20:08 Dose: 14 mg Ondansetron HCl (Zofran Odt) 4 mg PO Q6H PRN PRN Reason: Nausea/Vomiting Ondansetron HCl (Zofran) 4 mg IVP Q6H PRN PRN Reason: Nausea/Vomiting Sertraline HCl (Zoloft) 150 mg PO HS [facility] Last Admin: 10/04/18 20:08 Dose: 150 mg Sodium Chloride (Flush - Normal Saline) 10 ml IVF Q12HR [facility] Last Admin: 10/05/18 08:03 Dose: 10 ml Sodium Chloride (Flush - Normal Saline) 10 ml IVF PRN PRN PRN Reason: Saline Flush
[2018-10-05] MEDS ORDERED: Amlodipine 10 MG TAB PO SCH (16:00)
[2018-10-05] MEDS: cefTRIAXone\\ROCEPHIN 2 GM in Sodium Chloride 0.9% 100 ML IVPB SCH (17:08)
[2018-10-05] MEDS: Nicotine 14 MG PATCH TD SCH (20:37)
--- NOTE | 2018-10-06 00:39 | CON ---
DATE OF CONSULTATION: 10/05/2018 LOCATION: [facility]. HISTORY OF PRESENT ILLNESS: Mr. Troncoso is a 63-year-old white male who was seen on the hospital in his hospital room. The patient was admitted last Thursday, on the 01 of October for an ulcer on the inner aspect of the second toe left foot. The ulcer was a callous that developed into a blister within the last few months. 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 Tight socks and narrow shoes exacerbated the situation. He developed significant pain and nausea last week and was admitted into the hospital for the ulceration. PAST MEDICAL HISTORY: Significant for hyperthyroidism, possible hepatitis C. MEDICATIONS: Noted in chart, but include IV antibiotics. He is currently on Rocephin and ceftriaxone. ALLERGIES: NO DRUG ALLERGIES. FAMILY HISTORY: Unremarkable for diabetes. SOCIAL HISTORY: Social alcohol use. Positive tobacco use, one-half pack per day. REVIEW OF SYSTEMS: Noted in chart. PHYSICAL EXAMINATION: EXTREMITIES: Lower extremity physical examination, vascular status, patient was noted to have 2/4 dorsalis pedis and posterior tibial pulses bilaterally. Cap refill time was 3 seconds digits one through five. Warm to cool skin proximal to distal bilateral feet, reduced hair growth. NEUROLOGIC: Epicritic sensation was noted to be reduced in nature, decreased protective threshold to both feet. Achilles and patellar reflexes were intact. MUSCULOSKELETAL: Good range of motion, 5/5 muscle integrity and ambulatory. DERMATOLOGIC: Revealed a 1 x 1 cm full thickness ulcer to the medial PIPJ second digit left foot. The ulcer is noted to have a dry granular base. Minimal serous drainage. No acute cellulitis noted on the toe. Positive pain. IMAGING: An MRI of the left foot was positive for osteomyelitis of the middle phalanx second digit left foot. ASSESSMENT: Osteomyelitis, second digit, left foot. PLAN: At this time, the patient requires surgery, amputation of the second digit, left foot. I discussed in details the treatment and the postop care and ramifications of the surgery with the patient in detail. Nursing was informed. Preop orders were written to notify the [facility] for surgery tomorrow evening. Patient was placed on n.p.o. status at 10 in the morning tomorrow. Consent for surgery tomorrow is diagnosis of osteomyelitis, second digit, left foot. Procedure is amputation, second digit, left foot. Accu-Chek prior to surgery. If there are any questions or concerns, please call me at [phone]. Job ID: [id number]
[2018-10-06] MEDS: Enoxaparin Sodium 40 MG/0.4 ML SYRINGE SC SCH (07:41)
[2018-10-06] MEDS: Multivitamin W/ Minerals 1 TAB PO SCH (08:32)
[2018-10-06] MEDS: Amlodipine 10 MG TAB PO SCH (08:32)
[2018-10-06] MEDS: Levothyroxine Sodium 50 MCG TAB PO SCH (08:32)
[2018-10-06] MEDS: Famotidine 20 MG TAB PO SCH ×2 (08:33→21:08)
[2018-10-06] MEDS: HYDROcodone/Acetaminophen 5/325 mg Tablet PO PRN ×2 (08:36→15:41)
[2018-10-06] MEDS ORDERED: PROPOFOL 200 MG/20 ML VIAL ONE (13:01)
[2018-10-06] MEDS ORDERED: Ondansetron PF 4 MG/2 ML Vial ONE (13:01)
[2018-10-06] MEDS ORDERED: ePHEDrine 50 MG/ML VIAL ONE (13:01)
[2018-10-06] MEDS ORDERED: Lidocaine 1% PF 5 ML VIAL ONE (13:01)
[2018-10-06] MEDS ORDERED: PHENYLEPHRINE-NS 100 MCG/ML 10 ML SYRINGE ONE (13:01)
--- NOTE | 2018-10-06 15:32 | PDOC.PN ---
- Subjective Encounter Start Date: 10/06/18 Encounter Start Time: 15:29 Subjective: feels well. no fever/chills/N/V. -: no significant pain in toe - Objective Resuscitation Status - Order Detail: 10/01/18 18:04 Resuscitation Status Routine Resuscitation Status: FULL: Full Resuscitation MAR Reviewed: Yes Vital Signs & Weight: Vital Signs (12 hours) Temp Pulse Resp BP Pulse Ox 10/06/18 08:32 67 10/06/18 08:00 97 10/06/18 07:44 97.7 F 67 18 137/74 97 Weight Admit Weight 180 lb 8 oz Weight 180 lb 8 oz I&O: 10/05/18 10/06/18 10/07/18 06:59 06:59 06:59 Intake Total 720 960 240 Balance 720 960 240 Result Diagrams: 10/02/18 07:19 10/05/18 07:20 Additional Labs: Microbiology 10/01/18 14:12 Foot - Pending Bacterial Culture - Preliminary Staphylococcus aureus Phys Exam - Physical Examination Constitutional: NAD HEENT: PERRLA, moist MMs, sclera anicteric, oral pharynx no lesions Neck: no nodes, no JVD, supple, full ROM Respiratory: no wheezing, no rales, no rhonchi, clear to auscultation bilateral Cardiovascular: RRR, no significant murmur Gastrointestinal: soft, non-tender, no distention, positive bowel sounds Musculoskeletal: no edema, pulses present Neurological: non-focal, normal sensation, moves all 4 limbs Psychiatric: normal affect, A&O x 3 Skin: no rash Dx/Plan (1) Osteomyelitis of second toe of left foot Code(s): M86.9 - OSTEOMYELITIS, UNSPECIFIED Status: Acute Comment: empiric ABx. on Rocephin now per ID recs.follow Final Cx results. Appreciate podiatry input. Toe amputation recommended (2) Hypertension Code(s): I10 - ESSENTIAL (PRIMARY) HYPERTENSION Status: Chronic Comment: BP still high.Add Norvasc.PRN antihypertensives (3) Hypothyroidism Code(s): E03.9 - HYPOTHYROIDISM, UNSPECIFIED Status: Chronic Comment: cont synthyroid (4) Tobacco abuse Code(s): Z72.0 - TOBACCO USE Status: Acute (5) Chronic hepatitis Code(s): K73.9 - CHRONIC HEPATITIS, UNSPECIFIED Status: Suspected Comment: Hep C RNA +ve.Outpt follow up per ID.will need Rx - Plan continue antibiotics, PT/OT, respiratory therapy, incentive spirometry, out of bed/ambulate, DVT proph w/SCDs HD stable -: To OR today.cont rocephin -: may need just PO ABx based on surgical margins -: [place] RNA +ve.pt educated. will need ID f/u as an OP -: am labs * . Review of Systems - Review of Systems Constitutional: negative: fever, chills, sweats, weakness, malaise, other ENT: negative: Ear Pain, Ear Discharge, Nose Pain, Nose Discharge, Nose Congestion, Mouth Pain, Mouth Swelling, Throat Pain, Throat Swelling, Other Respiratory: negative: Cough, Dry, Shortness of Breath, Hemoptysis, SOB with Excertion, Pleuritic Pain, Sputum, Wheezing Cardiovascular: negative: chest pain, palpitations, orthopnea, paroxysmal nocturnal dyspnea, edema, light headedness, other Gastrointestinal: negative: Nausea, Vomiting, Abdominal Pain, Diarrhea, Constipation, Melena, Hematochezia, Other Genitourinary: negative: Dysuria, Frequency, Incontinence, Hematuria, Retention , Other Musculoskeletal: negative: Neck Pain, Shoulder Pain, Arm Pain, Back Pain, Hand Pain, Leg Pain, Foot Pain, Other Neurological: negative: Weakness, Numbness, Incoordination, Change in Speech, Confusion, Seizures, Other - Medications/Allergies Allergies/Adverse Reactions: Allergies Allergy/AdvReac Type Severity Reaction Status Date / Time No Known Drug Allergies Allergy Verified 10/01/18 21:40 Medications: Current Medications Acetaminophen (Tylenol) 650 mg PO Q4H PRN PRN Reason: Headache/Fever/Mild Pain (1-3) Hydrocodone Bitart/Acetaminophen ([place] 5/325) 1 tab PO Q4H PRN PRN Reason: Moderate Pain (4-6) Last Admin: 10/06/18 08:36 Dose: 1 tab Amlodipine Besylate (Norvasc) 10 mg PO DAILY [facility] Last Admin: 10/06/18 08:32 Dose: 10 mg Enoxaparin Sodium (Lovenox) 40 mg SC 0900 [facility] Last Admin: 10/06/18 07:41 Dose: Not Given Famotidine (Pepcid) 20 mg PO BID [facility] Last Admin: 10/06/18 08:33 Dose: 20 mg Hydralazine HCl (Apresoline) 10 mg SLOW IVP Q4H PRN PRN Reason: SBP > 180 and HR < 70 Ceftriaxone Sodium 2 gm/ (Sodium Chloride) 100 mls @ 200 mls/hr IVPB Q24HR [facility] Last Admin: 10/05/18 17:08 Dose: 100 mls Iron/Minerals/Multivitamins (Theragran M) 1 tab PO DAILY [facility] Last Admin: 10/06/18 08:32 Dose: 1 tab Levothyroxine Sodium (Synthroid) 50 mcg PO DAILY [facility] Last Admin: 10/06/18 08:32 Dose: 50 mcg Nicotine (Nicoderm Patch) 14 mg TD Q24HR [facility] Last Admin: 10/05/18 20:37 Dose: 14 mg Ondansetron HCl (Zofran Odt) 4 mg PO Q6H PRN PRN Reason: Nausea/Vomiting Ondansetron HCl (Zofran) 4 mg IVP Q6H PRN PRN Reason: Nausea/Vomiting Sertraline HCl (Zoloft) 150 mg PO HS [facility] Last Admin: 10/05/18 20:37 Dose: 150 mg Sodium Chloride (Flush - Normal Saline) 10 ml IVF Q12HR [facility] Last Admin: 10/06/18 09:24 Dose: 10 ml Sodium Chloride (Flush - Normal Saline) 10 ml IVF PRN PRN PRN Reason: Saline Flush
[2018-10-06] MEDS ORDERED: Lidocaine 1% (PF) 30 ML VIAL ONE (17:55)
[2018-10-06] MEDS ORDERED: Fentanyl 100 MCG/2 ML VIAL ONE (18:52)
[2018-10-06] MEDS ORDERED: Midazolam HCl 2 mg/2 ml Vial ONE (18:52)
[2018-10-06] MEDS ORDERED: Neomycin-Polymyxin 1 ML AMP ONE (19:01)
[2018-10-06] MEDS: cefTRIAXone\\ROCEPHIN 2 GM in Sodium Chloride 0.9% 100 ML IVPB SCH (19:12)
[2018-10-06] MEDS ORDERED: Promethazine HCl 25 MG/ML VIAL SLOW IVP PRN (20:13)
[2018-10-06] MEDS ORDERED: Ondansetron HCl/PF 4 MG/2 ML Vial IVP PRN (20:13)
[2018-10-06] MEDS ORDERED: Promethazine HCl 25 MG/ML VIAL IM PRN (20:13)
--- NOTE | 2018-10-06 20:45 | RAD ---
3 views left foot: 10/06/2018 COMPARISON: 10/01/2018 HISTORY: Evaluate following amputation FINDINGS: The patient is status post amputation of the second toe at the level of the second metatars al phalangeal joint. There is subcutaneous gas at the postoperative site, suggesting gas associated with recent surgery. A degree of this appearance may be on the basis of packing/gauze. Gas forming in fection in the proper clinical setting cannot be excluded. No acute fracture or evidence of dislocation is seen. There is moderate degenerative change involving the first metatarsal-phalangeal joint. IMPRESSION: Interval amputation of the second toe. Soft tissue gas at the surgical site as above.
[2018-10-06] MEDS: Nicotine 14 MG PATCH TD SCH (21:08)
[2018-10-06] MEDS: HYDROcodone/Acetaminophen 7.5/325 mg Tablet PO PRN (21:12)
[2018-10-07] MEDS: HYDROcodone/Acetaminophen 7.5/325 mg Tablet PO PRN ×5 (01:43→19:15)
--- NOTE | 2018-10-07 01:58 | OP ---
DATE OF PROCEDURE: 10/06/2018 PREOPERATIVE DIAGNOSIS: Osteomyelitis, second digit, left foot. POSTOPERATIVE DIAGNOSIS: Osteomyelitis, second digit, left foot. NAME OF PROCEDURE: Amputation, second digit, left foot. ANESTHESIA: LMA with local anesthesia. HEMOSTASIS: Pneumatic ankle tourniquet to 50 mmHg left ankle. ESTIMATED BLOOD LOSS: Minimal. PROCEDURE IN DETAIL: Under mild sedation, the patient was brought to the operating room and placed on the operating room table in a supine position. A pneumatic ankle tourniquet was placed on the left ankle following IV sedation and local anesthesia was obtained to the second MPJ, left foot utilizing 1% lidocaine plain, a total of 10 mL was used. The foot was scrubbed, prepped and draped in the usual aseptic manner. Esmarch bandage was utilized to exsanguinate the patient's left foot. The pneumatic ankle tourniquet was then inflated. Attention was directed to the second MPJ, left foot where a fishmouth incision was made deep to bone. The second MPJ was identified. Disarticulation of the second digit, left foot was performed at the MPJ level. The head of the second metatarsal was healthy. Good viable bone stalk. No signs of necrosis or nonviable tissue at the MPJ level. The distal aspect of the toe specifically the middle phalanx was noted to be necrotic, desiccated dry bone, nonviable tissue. Soft tissue and bone specimens at this time were taken for cultures including aerobic, anaerobic, acid fast and fungal cultures. Attention at this time was directed to the amputation site. The flexor and the extensor tendons were identified, retracted and cut. The wound was inspected for any further infection, none seen. At this time, using a Simpulse lavage machine and a total of 3000 mL of irrigation, the wound was flushed and irrigated with Simpulse lavage machine. Upon completion of the procedure, the open wound was dressed with and packed with half inch NuGauze plain, sterile 2x2s, 4x4s, Kerlix and a 4-inch Javier wrap. The pneumatic ankle tourniquet was deflated and a prompt hyperemic response was noted to remaining digits on the left foot. A postoperative shoe was then applied on the left foot. The patient tolerated the procedure and the anesthesia well, was transferred to the recovery room with vital signs stable and vascular status intact to remaining toes on the left foot. Following a period of postoperative monitoring, the patient will be sent back to his room, inhouse patient, with the following postoperative instructions; to keep the dressing dry and intact until tomorrow. The Wound Care Team was consulted. Social case manager was consulted for wound VAC therapy to start tomorrow. Avoid excessive ambulation. Weightbearing with postoperative shoe with bathroom privileges. Pain management consists of [place] 7.5/325 one tablet orally every 4 hours p.r.n. pain. To contact me for all postoperative followup care and if any problems or questions arise. Job ID: [id number]
[2018-10-07 07:03] LABS: #Eosinphils 0.2 thou/uL (0.0-0.7); #Lymphocytes 1.5 thou/uL (1.20-3.40); #Monocytes 0.6 thou/uL (0.11-0.59); #Neutrophils 5.6 thou/uL (1.40-6.50); %Basophils 0.6 % (0.0-1.0); %Lymphocytes 19.1 % (21.0-51.0); %Monocytes 7.6 % (0.0-10.0); %Neutrophils 69.8 % (42.0-75.0); Hemoglobin 15.5 g/dL (14.0-18.0); Mean Corpuscular Hemoglobin 32.9 pg (27.0-31.0); Mean Corpuscular Volume 91.6 fL (78.0-98.0); Platelet Count 94 thou/uL (130-400); RBC Distribution Width 12.4 % (11.5-14.5); White Blood Cell (WBC) Count 8.1 thou/uL (4.8-10.8)
[2018-10-07 07:18] LABS: Anion Gap 13 mmol/L (10-20); BUN (Urea Nitrogen) 19 mg/dL (8.4-25.7); Calc. Creatinine Clearance 103 mL/min (70-130); Carbon Dioxide 23 mmol/L (23-31); Chloride 105 mmol/L (98-107); Estimated GFR-MDRD 90; Glucose 72 mg/dL (80-115); Potassium 3.9 mmol/L (3.5-5.1); Sodium 137 mmol/L (136-145)
[2018-10-07] MEDS ORDERED: Senokot S 8.6-50 MG TAB PO PRN (07:21)
[2018-10-07] MEDS ORDERED: Cepastat Lozenges 1 LOZ PO PRN (07:21)
[2018-10-07] MEDS ORDERED: Eucerin (Mineral Oil/Petrolatum,White) 30 gm Jar TOP PRN (07:21)
[2018-10-07] MEDS ORDERED: Diabetic Tussin 200 MG/10 ML UDCUP PO PRN (07:21)
[2018-10-07] MEDS ORDERED: Sodium Chloride 0.65% Nasal 44 ML BOT EA NARE PRN (07:21)
[2018-10-07] MEDS ORDERED: Loperamide HCl 2 MG CAP PO PRN (07:21)
[2018-10-07] MEDS ORDERED: Bisacodyl 10 MG SUPP PR PRN (07:21)
[2018-10-07] MEDS ORDERED: Loratadine 10 MG TAB PO PRN (07:21)
[2018-10-07] MEDS ORDERED: Artificial Tears 18 DROP/0.9 ML EA EYE PRN (07:21)
[2018-10-07] MEDS ORDERED: Zolpidem Tartrate 5 MG TAB PO PRN (07:21)
[2018-10-07] MEDS: Amlodipine 10 MG TAB PO SCH (08:57)
[2018-10-07] MEDS: Multivitamin W/ Minerals 1 TAB PO SCH (08:57)
[2018-10-07] MEDS: Levothyroxine Sodium 50 MCG TAB PO SCH (08:58)
[2018-10-07] MEDS: Enoxaparin Sodium 40 MG/0.4 ML SYRINGE SC SCH (08:58)
[2018-10-07] MEDS: Famotidine 20 MG TAB PO SCH ×2 (08:58→19:16)
--- NOTE | 2018-10-07 11:58 | PDOC.PN ---
- Subjective Encounter Start Date: 10/07/18 Encounter Start Time: 10:00 Patient seen and examined. No new complaints. No overnight events - Objective Resuscitation Status - Order Detail: 10/01/18 18:04 Resuscitation Status Routine Resuscitation Status: FULL: Full Resuscitation MAR Reviewed: Yes Vital Signs & Weight: Vital Signs (12 hours) Temp Pulse Resp BP BP Pulse Ox 10/07/18 08:57 61 118/74 10/07/18 08:00 95 10/07/18 07:04 97.7 F 53 L 18 92/55 L 95 10/07/18 04:53 98.0 F 68 18 120/74 93 L 10/07/18 00:12 98.1 F 69 16 105/68 93 L Weight Admit Weight 180 lb 8 oz Weight 180 lb 8 oz I&O: 10/06/18 10/07/18 10/08/18 06:59 06:59 06:59 Intake Total 960 960 480 Balance 960 960 480 Result Diagrams: 10/07/18 05:28 10/07/18 05:28 Phys Exam - Physical Examination Constitutional: NAD HEENT: PERRLA, moist MMs, sclera anicteric Neck: no JVD, supple Respiratory: no wheezing, no rales, no rhonchi Cardiovascular: RRR, no significant murmur, no rub Gastrointestinal: soft, non-tender, no distention, positive bowel sounds Musculoskeletal: no edema, pulses present left toe with wound vac, with dressing Neurological: non-focal, normal sensation, moves all 4 limbs Lymphatic: no nodes Psychiatric: normal affect, A&O x 3 Skin: no rash, normal turgor Dx/Plan (1) Osteomyelitis of second toe of left foot Code(s): M86.9 - OSTEOMYELITIS, UNSPECIFIED Status: Acute Comment: s/p left 2nd toe amputation (2) Anxiety and depression Code(s): F41.9 - ANXIETY DISORDER, UNSPECIFIED; F32.9 - MAJOR DEPRESSIVE DISORDER, SINGLE EPISODE, UNSPECIFIED Status: Chronic (3) Chronic hepatitis Code(s): K73.9 - CHRONIC HEPATITIS, UNSPECIFIED Status: Chronic Comment: Hep C RNA +ve. Outpt follow up for treatment advised. per ID. (4) Hypertension Code(s): I10 - ESSENTIAL (PRIMARY) HYPERTENSION Status: Chronic Comment: BP still high.Add Norvasc.PRN antihypertensives (5) Hypothyroidism Code(s): E03.9 - HYPOTHYROIDISM, UNSPECIFIED Status: Chronic Comment: cont synthyroid (6) Thrombocytopenia Code(s): D69.6 - THROMBOCYTOPENIA, UNSPECIFIED Status: Chronic (7) Tobacco abuse Code(s): Z72.0 - TOBACCO USE Status: Chronic - Plan cont current plan of care, continue antibiotics, case management social worker * continue rocephin * continue wound care with wound vac * will need outpt wound care arrangement. * medication reviewed as below * symptomatic treatment Review of Systems - Review of Systems ENT: negative: Ear Pain, Ear Discharge, Nose Pain, Nose Discharge, Nose Congestion, Mouth Pain, Mouth Swelling, Throat Pain, Throat Swelling, Other Respiratory: negative: Cough, Dry, Shortness of Breath, Hemoptysis, SOB with Excertion, Pleuritic Pain, Sputum, Wheezing Cardiovascular: negative: chest pain, palpitations, orthopnea, paroxysmal nocturnal dyspnea, edema, light headedness, other Gastrointestinal: negative: Nausea, Vomiting, Abdominal Pain, Diarrhea, Constipation, Melena, Hematochezia, Other Genitourinary: negative: Dysuria, Frequency, Incontinence, Hematuria, Retention , Other Musculoskeletal: negative: Neck Pain, Shoulder Pain, Arm Pain, Back Pain, Hand Pain, Leg Pain, Foot Pain, Other Skin: negative: Rash, Lesions, [place], Bruising, Other - Medications/Allergies Allergies/Adverse Reactions: Allergies Allergy/AdvReac Type Severity Reaction Status Date / Time No Known Drug Allergies Allergy Verified 10/01/18 21:40 Medications: Current Medications Acetaminophen (Tylenol) 650 mg PO Q4H PRN PRN Reason: Headache/Fever/Mild Pain (1-3) Hydrocodone Bitart/Acetaminophen ([place] 7.5/325) 1 tab PO Q4H PRN PRN Reason: Pain 4-6 Last Admin: 10/07/18 10:12 Dose: 1 tab Amlodipine Besylate (Norvasc) 10 mg PO DAILY [facility] Last Admin: 10/07/18 08:57 Dose: 10 mg Artificial Tears (Tears Naturale) 2 drop EA EYE PRN PRN PRN Reason: Dry Eyes Bisacodyl (Dulcolax) 10 mg OK DAILYPRN PRN PRN Reason: Constipation Enoxaparin Sodium (Lovenox) 40 mg SC 0900 [facility] Last Admin: 10/07/18 08:58 Dose: Not Given Famotidine (Pepcid) 20 mg PO BID [facility] Last Admin: 10/07/18 08:58 Dose: 20 mg Guaifenesin (Robitussin Sf) 200 mg PO Q4H PRN PRN Reason: Cough Hydralazine HCl (Apresoline) 10 mg SLOW IVP Q4H PRN PRN Reason: SBP > 180 and HR < 70 Ceftriaxone Sodium 2 gm/ (Sodium Chloride) 100 mls @ 200 mls/hr IVPB Q24HR [facility] Last Admin: 10/06/18 19:12 Dose: Not Given Iron/Minerals/Multivitamins (Theragran M) 1 tab PO DAILY [facility] Last Admin: 10/07/18 08:57 Dose: 1 tab Levothyroxine Sodium (Synthroid) 50 mcg PO DAILY [facility] Last Admin: 10/07/18 08:58 Dose: 50 mcg Loperamide HCl (Imodium) 2 mg PO PRN PRN PRN Reason: Diarrhea/Loose Stools Loratadine (Claritin) 10 mg PO DAILYPRN PRN PRN Reason: Sinus Symptoms Mineral Oil/White Petrolatum (Eucerin Cream) 0 gm TOP BIDPRN PRN PRN Reason: Dry Skin Nicotine (Nicoderm Patch) 14 mg TD Q24HR [facility] Last Admin: 10/06/18 21:08 Dose: 14 mg Ondansetron HCl (Zofran Odt) 4 mg PO Q6H PRN PRN Reason: Nausea/Vomiting Ondansetron HCl (Zofran) 4 mg IVP Q6H PRN PRN Reason: Nausea/Vomiting Senna/Docusate Sodium (Senokot S) 2 tab PO BID PRN PRN Reason: Constipation Sertraline HCl (Zoloft) 150 mg PO HS [facility] Last Admin: 10/06/18 21:08 Dose: 150 mg Sodium Chloride (Flush - Normal Saline) 10 ml IVF Q12HR [facility] Last Admin: 10/07/18 09:01 Dose: 10 ml Sodium Chloride (Flush - Normal Saline) 10 ml IVF PRN PRN PRN Reason: Saline Flush Sodium Chloride (Foot [place] Ten Nasal [place] 0.65%) 0 ml EA NARE QIDPRN PRN PRN Reason: Nasal Congestion Throat Lozenges (Cepastat Lozenges) 1 leticia PO Q2H PRN PRN Reason: Sore Throat Zolpidem Tartrate (Ambien) 5 mg PO HSPRN PRN PRN Reason: Insomnia
[2018-10-07] MEDS: cefTRIAXone\\ROCEPHIN 2 GM in Sodium Chloride 0.9% 100 ML IVPB SCH (19:04)
[2018-10-07] MEDS: Nicotine 14 MG PATCH TD SCH (19:16)
[2018-10-07] MEDS: Cephalexin 250 MG CAP PO SCH (20:33)
[2018-10-08] MEDS: HYDROcodone/Acetaminophen 7.5/325 mg Tablet PO PRN ×5 (04:23→20:08)
[2018-10-08] MEDS: Amlodipine 10 MG TAB PO SCH (07:59)
[2018-10-08] MEDS: Cephalexin 250 MG CAP PO SCH ×3 (07:59→20:08)
[2018-10-08] MEDS: Famotidine 20 MG TAB PO SCH ×2 (08:00→20:08)
[2018-10-08] MEDS: Multivitamin W/ Minerals 1 TAB PO SCH (08:00)
[2018-10-08] MEDS: Levothyroxine Sodium 50 MCG TAB PO SCH (08:00)
[2018-10-08] MEDS: Enoxaparin Sodium 40 MG/0.4 ML SYRINGE SC SCH (08:01)
--- NOTE | 2018-10-08 11:12 | DIS ---
DATE OF ADMISSION: 10/01/2018 DATE OF DISCHARGE: 10/08/2018 PRIMARY CARE PHYSICIAN: [facility]. DISCHARGE DISPOSITION: Home with home health outpatient wound care. PRIMARY DISCHARGE DIAGNOSIS: Osteomyelitis of second toe of left foot, status post toe amputation. SECONDARY DISCHARGE DIAGNOSES: Tobacco abuse disorder, thrombocytopenia, hypothyroidism, hypertension, chronic hepatitis, anxiety, and depression. PRIMARY PROCEDURE/OPERATION: Left second toe amputation done by Dr. Esvin Emery. RADIOLOGICAL INVESTIGATION: Foot x-ray suspected osteomyelitis. Lower extremity MRI confirmed osteomyelitis of the second toe. Abdominal ultrasound was unremarkable. SIGNIFICANT LABORATORY DATA: Hemoglobin 15.5. Creatinine 0.86. Hepatitis C positive. Culture from wound grew Staph aureus. DISCHARGE MEDICATIONS: 1. Keflex 500 mg t.i.d. 2. Tylenol No.3 one or two tablets q.6 hourly p.r.n. 3. Amlodipine 10 mg daily. 4. Zoloft 150 mg p.o. at bedtime. 5. Multivitamin one tablet p.o. daily. 6. Synthroid 50 mcg p.o. daily. CONTRAINDICATION: None. CODE STATUS: Full code. INPATIENT MEDICINE WORKER: Dr. Bajwa was consulted while in hospital. Dr. Emery, clipper machine operator was following while in hospital. TEST RESULTS PENDING ON DISCHARGE: None. ALLERGIES: NO KNOWN DRUG ALLERGIES. DISCHARGE PLAN: Posthospital, the patient will follow up with Dr. Bajwa and Dr. Emery for further evaluation. HOSPITAL COURSE: A 63-year-old male with above-mentioned medical problem, who was admitted by Dr. Elizalde. Please see her H and P for further details. This patient was having cellulitis and osteomyelitis of left foot as well as the left second toe. Dr. Bajwa recommended to change antibiotic therapy to Rocephin daily. His wound culture grew MSSA. Dr. Emery, clipper machine operator was consulted and he did amputation. Pathology report is pending at this point. This patient is receiving Keflex. He is doing much better. At this point, we will wait for the clipper machine operator to evaluate this patient and if they are okay, then we will consider discharging him home. He will need before discharge, wound VAC arrangement and home health arrangement for wound care and will sent prescription for oral antibiotic therapy. If his pathology report from the amputation site and margin is not clear, then he will need a PICC line and outpatient IV antibiotic therapy and that is why I advised him to make appointment with Dr. Bajwa for followup on pathology report. Overall, the patient is doing much better. The patient is stable. Job ID: [id number]
--- NOTE | 2018-10-08 11:30 | PDOC.PN ---
- Subjective Encounter Start Date: 10/08/18 Encounter Start Time: 09:55 Patient seen and examined. No new complaints. No overnight events - Objective Resuscitation Status - Order Detail: 10/01/18 18:04 Resuscitation Status Routine Resuscitation Status: FULL: Full Resuscitation MAR Reviewed: Yes Vital Signs & Weight: Vital Signs (12 hours) Temp Pulse Resp BP BP Pulse Ox 10/08/18 08:00 98.0 F 68 18 171/68 H 95 10/08/18 07:59 68 171/68 H Weight Admit Weight 180 lb 8 oz Weight 180 lb 8 oz I&O: 10/07/18 10/08/18 10/09/18 06:59 06:59 06:59 Intake Total 960 1560 Output Total 400 1250 Balance 560 310 Result Diagrams: 10/07/18 05:28 10/07/18 05:28 Phys Exam - Physical Examination Constitutional: NAD HEENT: PERRLA, moist MMs, sclera anicteric Neck: no JVD, supple Respiratory: no wheezing, no rales, no rhonchi Cardiovascular: RRR, no significant murmur, no rub Gastrointestinal: soft, non-tender, no distention, positive bowel sounds Musculoskeletal: no edema, pulses present left 2nd toe with wound vac Neurological: non-focal, normal sensation, moves all 4 limbs Lymphatic: no nodes Psychiatric: normal affect, A&O x 3 Skin: no rash, normal turgor Dx/Plan (1) Osteomyelitis of second toe of left foot Code(s): M86.9 - OSTEOMYELITIS, UNSPECIFIED Status: Acute Comment: s/p left 2nd toe amputation (2) Anxiety and depression Code(s): F41.9 - ANXIETY DISORDER, UNSPECIFIED; F32.9 - MAJOR DEPRESSIVE DISORDER, SINGLE EPISODE, UNSPECIFIED Status: Chronic (3) Chronic hepatitis Code(s): K73.9 - CHRONIC HEPATITIS, UNSPECIFIED Status: Chronic Comment: Hep C RNA +ve. Outpt follow up for treatment advised. per ID. (4) Hypertension Code(s): I10 - ESSENTIAL (PRIMARY) HYPERTENSION Status: Chronic Comment: BP still high.Add Norvasc.PRN antihypertensives (5) Hypothyroidism Code(s): E03.9 - HYPOTHYROIDISM, UNSPECIFIED Status: Chronic Comment: cont synthyroid (6) Thrombocytopenia Code(s): D69.6 - THROMBOCYTOPENIA, UNSPECIFIED Status: Chronic (7) Tobacco abuse Code(s): Z72.0 - TOBACCO USE Status: Chronic - Plan cont current plan of care, continue antibiotics * pathology reports margin viable * OK on keflex * wound care and wound vac arrangement * will consider dc if consultants are OK * medication reviewed as below * symptomatic treatment. Review of Systems - Review of Systems ENT: negative: Ear Pain, Ear Discharge, Nose Pain, Nose Discharge, Nose Congestion, Mouth Pain, Mouth Swelling, Throat Pain, Throat Swelling, Other Respiratory: negative: Cough, Dry, Shortness of Breath, Hemoptysis, SOB with Excertion, Pleuritic Pain, Sputum, Wheezing Cardiovascular: negative: chest pain, palpitations, orthopnea, paroxysmal nocturnal dyspnea, edema, light headedness, other Gastrointestinal: negative: Nausea, Vomiting, Abdominal Pain, Diarrhea, Constipation, Melena, Hematochezia, Other Genitourinary: negative: Dysuria, Frequency, Incontinence, Hematuria, Retention , Other Musculoskeletal: negative: Neck Pain, Shoulder Pain, Arm Pain, Back Pain, Hand Pain, Leg Pain, Foot Pain, Other Skin: negative: Rash, Lesions, Rio, Bruising, Other - Medications/Allergies Allergies/Adverse Reactions: Allergies Allergy/AdvReac Type Severity Reaction Status Date / Time No Known Drug Allergies Allergy Verified 10/01/18 21:40 Medications: Current Medications Acetaminophen (Tylenol) 650 mg PO Q4H PRN PRN Reason: Headache/Fever/Mild Pain (1-3) Hydrocodone Bitart/Acetaminophen ([place] 7.5/325) 1 tab PO Q4H PRN PRN Reason: Pain 4-6 Last Admin: 10/08/18 08:04 Dose: 1 tab Amlodipine Besylate (Norvasc) 10 mg PO DAILY [facility] Last Admin: 10/08/18 07:59 Dose: 10 mg Artificial Tears (Tears Naturale) 2 drop EA EYE PRN PRN PRN Reason: Dry Eyes Bisacodyl (Dulcolax) 10 mg [place] DAILYPRN PRN PRN Reason: Constipation Cephalexin (Keflex) 500 mg PO TID [facility] Last Admin: 10/08/18 07:59 Dose: 500 mg Enoxaparin Sodium (Lovenox) 40 mg SC 0900 [facility] Last Admin: 10/08/18 08:01 Dose: Not Given Famotidine (Pepcid) 20 mg PO BID [facility] Last Admin: 10/08/18 08:00 Dose: 20 mg Guaifenesin (Robitussin Sf) 200 mg PO Q4H PRN PRN Reason: Cough Hydralazine HCl (Apresoline) 10 mg SLOW IVP Q4H PRN PRN Reason: SBP > 180 and HR < 70 Iron/Minerals/Multivitamins (Theragran M) 1 tab PO DAILY [facility] Last Admin: 10/08/18 08:00 Dose: 1 tab Levothyroxine Sodium (Synthroid) 50 mcg PO DAILY [facility] Last Admin: 10/08/18 08:00 Dose: 50 mcg Loperamide HCl (Imodium) 2 mg PO PRN PRN PRN Reason: Diarrhea/Loose Stools Loratadine (Claritin) 10 mg PO DAILYPRN PRN PRN Reason: Sinus Symptoms Mineral Oil/White Petrolatum (Eucerin Cream) 0 gm TOP BIDPRN PRN PRN Reason: Dry Skin Nicotine (Nicoderm Patch) 14 mg TD Q24HR [facility] Last Admin: 10/07/18 19:16 Dose: 14 mg Ondansetron HCl (Zofran Odt) 4 mg PO Q6H PRN PRN Reason: Nausea/Vomiting Ondansetron HCl (Zofran) 4 mg IVP Q6H PRN PRN Reason: Nausea/Vomiting Senna/Docusate Sodium (Senokot S) 2 tab PO BID PRN PRN Reason: Constipation Sertraline HCl (Zoloft) 150 mg PO [facility] Last Admin: 10/07/18 19:15 Dose: 150 mg Sodium Chloride (Flush - Normal Saline) 10 ml IVF Q12HR [facility] Last Admin: 10/08/18 08:02 Dose: Not Given Sodium Chloride (Flush - Normal Saline) 10 ml IVF PRN PRN PRN Reason: Saline Flush Sodium Chloride ([place] Nasal [place] 0.65%) 0 ml EA NARE QIDPRN PRN PRN Reason: Nasal Congestion Throat Lozenges (Cepastat Lozenges) 1 leticia PO Q2H PRN PRN Reason: Sore Throat Zolpidem Tartrate (Ambien) 5 mg PO HSPRN PRN PRN Reason: Insomnia
[2018-10-08] MEDS: Nicotine 14 MG PATCH TD SCH (20:10)
[2018-10-09] MEDS: HYDROcodone/Acetaminophen 7.5/325 mg Tablet PO PRN ×4 (08:33→22:15)
[2018-10-09] MEDS: Multivitamin W/ Minerals 1 TAB PO SCH (08:34)
[2018-10-09] MEDS: Levothyroxine Sodium 50 MCG TAB PO SCH (08:34)
[2018-10-09] MEDS: Amlodipine 10 MG TAB PO SCH (08:34)
[2018-10-09] MEDS: Cephalexin 250 MG CAP PO SCH ×3 (08:34→20:04)
[2018-10-09] MEDS: Famotidine 20 MG TAB PO SCH ×2 (08:34→20:05)
[2018-10-09] MEDS: Enoxaparin Sodium 40 MG/0.4 ML SYRINGE SC SCH (08:35)
--- NOTE | 2018-10-09 10:51 | PDOC.PN ---
- Subjective Encounter Start Date: 10/09/18 Encounter Start Time: 08:20 Patient seen and examined. No new complaints. No overnight events - Objective Resuscitation Status - Order Detail: 10/01/18 18:04 Resuscitation Status Routine Resuscitation Status: FULL: Full Resuscitation MAR Reviewed: Yes Vital Signs & Weight: Vital Signs (12 hours) Temp Pulse Resp BP BP Pulse Ox 10/09/18 08:34 63 116/74 10/09/18 07:05 97.9 F 63 18 116/74 96 Weight Admit Weight 180 lb 8 oz Weight 180 lb 8 oz I&O: 10/08/18 10/09/18 10/10/18 06:59 06:59 06:59 Intake Total 1560 Output Total 1250 Balance 310 Result Diagrams: 10/07/18 05:28 10/07/18 05:28 Phys Exam - Physical Examination Constitutional: NAD HEENT: PERRLA, moist MMs, sclera anicteric Neck: no JVD, supple Respiratory: no wheezing, no rales, no rhonchi Cardiovascular: RRR, no significant murmur, no rub Gastrointestinal: soft, non-tender, no distention, positive bowel sounds Musculoskeletal: no edema, pulses present wound with wound vac+ Neurological: non-focal, normal sensation, moves all 4 limbs Lymphatic: no nodes Psychiatric: normal affect, A&O x 3 Skin: no rash, normal turgor Dx/Plan (1) Osteomyelitis of second toe of left foot Code(s): M86.9 - OSTEOMYELITIS, UNSPECIFIED Status: Acute Comment: s/p left 2nd toe amputation (2) Anxiety and depression Code(s): F41.9 - ANXIETY DISORDER, UNSPECIFIED; F32.9 - MAJOR DEPRESSIVE DISORDER, SINGLE EPISODE, UNSPECIFIED Status: Chronic (3) Chronic hepatitis Code(s): K73.9 - CHRONIC HEPATITIS, UNSPECIFIED Status: Chronic Comment: Hep C RNA +ve. Outpt follow up for treatment advised. per ID. (4) Hypertension Code(s): I10 - ESSENTIAL (PRIMARY) HYPERTENSION Status: Chronic Comment: BP still high.Add Norvasc.PRN antihypertensives (5) Hypothyroidism Code(s): E03.9 - HYPOTHYROIDISM, UNSPECIFIED Status: Chronic Comment: cont synthyroid (6) Thrombocytopenia Code(s): D69.6 - THROMBOCYTOPENIA, UNSPECIFIED Status: Chronic (7) Tobacco abuse Code(s): Z72.0 - TOBACCO USE Status: Chronic - Plan cont current plan of care, continue antibiotics * podiatry will evaluate today * human services case manager to arrange outpt wound care and wound vac * medication reviewed as below * symptomatic treatment * continue keflex. Review of Systems - Review of Systems ENT: negative: Ear Pain, Ear Discharge, Nose Pain, Nose Discharge, Nose Congestion, Mouth Pain, Mouth Swelling, Throat Pain, Throat Swelling, Other Respiratory: negative: Cough, Dry, Shortness of Breath, Hemoptysis, SOB with Excertion, Pleuritic Pain, Sputum, Wheezing Cardiovascular: negative: chest pain, palpitations, orthopnea, paroxysmal nocturnal dyspnea, edema, light headedness, other Gastrointestinal: negative: Nausea, Vomiting, Abdominal Pain, Diarrhea, Constipation, Melena, Hematochezia, Other Genitourinary: negative: Dysuria, Frequency, Incontinence, Hematuria, Retention , Other Musculoskeletal: negative: Neck Pain, Shoulder Pain, Arm Pain, Back Pain, Hand Pain, Leg Pain, Foot Pain, Other Skin: negative: Rash, Lesions, Rio, Bruising, Other - Medications/Allergies Allergies/Adverse Reactions: Allergies Allergy/AdvReac Type Severity Reaction Status Date / Time No Known Drug Allergies Allergy Verified 10/01/18 21:40 Medications: Current Medications Acetaminophen (Tylenol) 650 mg PO Q4H PRN PRN Reason: Headache/Fever/Mild Pain (1-3) Hydrocodone Bitart/Acetaminophen ([place] 7.5/325) 1 tab PO Q4H PRN PRN Reason: Pain 4-6 Last Admin: 10/09/18 08:33 Dose: 1 tab Amlodipine Besylate (Norvasc) 10 mg PO DAILY [facility] Last Admin: 10/09/18 08:34 Dose: 10 mg Artificial Tears (Tears Naturale) 2 drop EA EYE PRN PRN PRN Reason: Dry Eyes Bisacodyl (Dulcolax) [address] DAILYPRN PRN PRN Reason: Constipation Cephalexin (Keflex) 500 mg PO TID [facility] Last Admin: 10/09/18 08:34 Dose: 500 mg Enoxaparin Sodium (Lovenox) 40 mg SC 0900 [facility] Last Admin: 10/09/18 08:35 Dose: Not Given Famotidine (Pepcid) 20 mg PO BID [facility] Last Admin: 10/09/18 08:34 Dose: 20 mg Guaifenesin (Robitussin Sf) 200 mg PO Q4H PRN PRN Reason: Cough Hydralazine HCl (Apresoline) 10 mg SLOW IVP Q4H PRN PRN Reason: SBP > 180 and HR < 70 Iron/Minerals/Multivitamins (Theragran M) 1 tab PO DAILY [facility] Last Admin: 10/09/18 08:34 Dose: 1 tab Levothyroxine Sodium (Synthroid) 50 mcg PO DAILY [facility] Last Admin: 10/09/18 08:34 Dose: 50 mcg Loperamide HCl (Imodium) 2 mg PO PRN PRN PRN Reason: Diarrhea/Loose Stools Loratadine (Claritin) 10 mg PO DAILYPRN PRN PRN Reason: Sinus Symptoms Mineral Oil/White Petrolatum (Eucerin Cream) 0 gm TOP BIDPRN PRN PRN Reason: Dry Skin Nicotine (Nicoderm Patch) 14 mg TD Q24HR [facility] Last Admin: 10/08/18 20:10 Dose: 14 mg Ondansetron HCl (Zofran Odt) 4 mg PO Q6H PRN PRN Reason: Nausea/Vomiting Ondansetron HCl (Zofran) 4 mg IVP Q6H PRN PRN Reason: Nausea/Vomiting Senna/Docusate Sodium (Senokot S) 2 tab PO BID PRN PRN Reason: Constipation Sertraline HCl (Zoloft) 150 mg PO HS [facility] Last Admin: 10/08/18 20:08 Dose: 150 mg Sodium Chloride (Flush - Normal Saline) 10 ml IVF Q12HR [facility] Last Admin: 10/09/18 08:41 Dose: Not Given Sodium Chloride (Flush - Normal Saline) 10 ml IVF PRN PRN PRN Reason: Saline Flush Sodium Chloride ([place] Nasal [place] 0.65%) 0 ml EA NARE QIDPRN PRN PRN Reason: Nasal Congestion Throat Lozenges (Cepastat Lozenges) 1 leticia PO Q2H PRN PRN Reason: Sore Throat Zolpidem Tartrate (Ambien) 5 mg PO HSPRN PRN PRN Reason: Insomnia
[2018-10-09] MEDS: Nicotine 14 MG PATCH TD SCH (20:05)
[2018-10-10] MEDS: HYDROcodone/Acetaminophen 7.5/325 mg Tablet PO PRN ×4 (09:04→22:01)
[2018-10-10] MEDS: Cephalexin 250 MG CAP PO SCH ×3 (09:05→20:20)
[2018-10-10] MEDS: Levothyroxine Sodium 50 MCG TAB PO SCH (09:06)
[2018-10-10] MEDS: Amlodipine 10 MG TAB PO SCH (09:06)
[2018-10-10] MEDS: Famotidine 20 MG TAB PO SCH ×2 (09:07→20:20)
[2018-10-10] MEDS: Multivitamin W/ Minerals 1 TAB PO SCH (09:07)
[2018-10-10] MEDS: Enoxaparin Sodium 40 MG/0.4 ML SYRINGE SC SCH (09:12)
--- NOTE | 2018-10-10 10:31 | PDOC.PN ---
- Subjective Encounter Start Date: 10/10/18 Encounter Start Time: 08:40 Patient seen and examined. No overnight events pt has diarrhoea today - Objective Resuscitation Status - Order Detail: 10/01/18 18:04 Resuscitation Status Routine Resuscitation Status: FULL: Full Resuscitation MAR Reviewed: Yes Vital Signs & Weight: Vital Signs (12 hours) Temp Pulse Resp BP Pulse Ox 10/10/18 09:06 64 10/10/18 08:00 95 10/10/18 07:49 97.8 F 64 16 109/70 95 Weight Admit Weight 180 lb 8 oz Weight 180 lb 8 oz I&O: 10/09/18 10/10/18 10/11/18 06:59 06:59 06:59 Intake Total 1800 Output Total 250 Balance 1550 Result Diagrams: 10/07/18 05:28 10/07/18 05:28 Phys Exam - Physical Examination Constitutional: NAD HEENT: PERRLA, moist MMs, sclera anicteric Neck: no JVD, supple Respiratory: no wheezing, no rales, no rhonchi Cardiovascular: RRR, no significant murmur, no rub Gastrointestinal: soft, non-tender, no distention, positive bowel sounds Musculoskeletal: no edema, pulses present wound vac at surgical site Neurological: non-focal, normal sensation, moves all 4 limbs Lymphatic: no nodes Psychiatric: normal affect, A&O x 3 Skin: no rash, normal turgor Dx/Plan (1) Osteomyelitis of second toe of left foot Code(s): M86.9 - OSTEOMYELITIS, UNSPECIFIED Status: Acute Comment: s/p left 2nd toe amputation (2) Anxiety and depression Code(s): F41.9 - ANXIETY DISORDER, UNSPECIFIED; F32.9 - MAJOR DEPRESSIVE DISORDER, SINGLE EPISODE, UNSPECIFIED Status: Chronic (3) Chronic hepatitis Code(s): K73.9 - CHRONIC HEPATITIS, UNSPECIFIED Status: Chronic Comment: Hep C RNA +ve. Outpt follow up for treatment advised. per ID. (4) Hypertension Code(s): I10 - ESSENTIAL (PRIMARY) HYPERTENSION Status: Chronic Comment: BP still high.Add Norvasc.PRN antihypertensives (5) Hypothyroidism Code(s): E03.9 - HYPOTHYROIDISM, UNSPECIFIED Status: Chronic Comment: cont synthyroid (6) Thrombocytopenia Code(s): D69.6 - THROMBOCYTOPENIA, UNSPECIFIED Status: Chronic (7) Tobacco abuse Code(s): Z72.0 - TOBACCO USE Status: Chronic - Plan cont current plan of care, continue antibiotics * add florastor * will check stool for c-dif and if negative then continue symptomatic treatment for diarrhoea, likely related with antibiotics * await arrangement for wound vac and wound care * as per podiatry, wound looks good * medication reviewed as below * symptomatic treatment. Review of Systems - Review of Systems ENT: negative: Ear Pain, Ear Discharge, Nose Pain, Nose Discharge, Nose Congestion, Mouth Pain, Mouth Swelling, Throat Pain, Throat Swelling, Other Respiratory: negative: Cough, Dry, Shortness of Breath, Hemoptysis, SOB with Excertion, Pleuritic Pain, Sputum, Wheezing Cardiovascular: negative: chest pain, palpitations, orthopnea, paroxysmal nocturnal dyspnea, edema, light headedness, other Gastrointestinal: Diarrhea. negative: Nausea, Vomiting, Abdominal Pain, Constipation, Melena, Hematochezia, Other Genitourinary: negative: Dysuria, Frequency, Incontinence, Hematuria, Retention , Other Musculoskeletal: negative: Neck Pain, Shoulder Pain, Arm Pain, Back Pain, Hand Pain, Leg Pain, Foot Pain, Other - Medications/Allergies Allergies/Adverse Reactions: Allergies Allergy/AdvReac Type Severity Reaction Status Date / Time No Known Drug Allergies Allergy Verified 10/01/18 21:40 Medications: Current Medications Acetaminophen (Tylenol) 650 mg PO Q4H PRN PRN Reason: Headache/Fever/Mild Pain (1-3) Hydrocodone Bitart/Acetaminophen ([place] 7.5/325) 1 tab PO Q4H PRN PRN Reason: Pain 4-6 Last Admin: 10/10/18 09:04 Dose: 1 tab Amlodipine Besylate (Norvasc) 10 mg PO DAILY [facility] Last Admin: 10/10/18 09:06 Dose: Not Given Artificial Tears (Tears Naturale) 2 drop EA EYE PRN PRN PRN Reason: Dry Eyes Bisacodyl (Dulcolax) 10 mg [place] DAILYPRN PRN PRN Reason: Constipation Cephalexin (Keflex) 500 mg PO TID [facility] Last Admin: 10/10/18 09:05 Dose: 500 mg Enoxaparin Sodium (Lovenox) 40 mg SC 0900 [facility] Last Admin: 10/10/18 09:12 Dose: Not Given Famotidine (Pepcid) 20 mg PO BID [facility] Last Admin: 10/10/18 09:07 Dose: 20 mg Guaifenesin (Robitussin Sf) 200 mg PO Q4H PRN PRN Reason: Cough Hydralazine HCl (Apresoline) 10 mg SLOW IVP Q4H PRN PRN Reason: SBP > 180 and HR < 70 Iron/Minerals/Multivitamins (Theragran M) 1 tab PO DAILY [facility] Last Admin: 10/10/18 09:07 Dose: 1 tab Levothyroxine Sodium (Synthroid) 50 mcg PO DAILY [facility] Last Admin: 10/10/18 09:06 Dose: 50 mcg Loperamide HCl (Imodium) 2 mg PO PRN PRN PRN Reason: Diarrhea/Loose Stools Loratadine (Claritin) 10 mg PO DAILYPRN PRN PRN Reason: Sinus Symptoms Mineral Oil/White Petrolatum (Eucerin Cream) 0 gm TOP BIDPRN PRN PRN Reason: Dry Skin Nicotine (Nicoderm Patch) 14 mg TD Q24HR [facility] Last Admin: 10/09/18 20:05 Dose: 14 mg Ondansetron HCl (Zofran Odt) 4 mg PO Q6H PRN PRN Reason: Nausea/Vomiting Ondansetron HCl (Zofran) 4 mg IVP Q6H PRN PRN Reason: Nausea/Vomiting Senna/Docusate Sodium (Senokot S) 2 tab PO BID PRN PRN Reason: Constipation Sertraline HCl (Zoloft) 150 mg PO HS [facility] Last Admin: 10/09/18 20:04 Dose: 150 mg Sodium Chloride (Flush - Normal Saline) 10 ml IVF Q12HR [facility] Last Admin: 10/10/18 09:29 Dose: Not Given Sodium Chloride (Flush - Normal Saline) 10 ml IVF PRN PRN PRN Reason: Saline Flush Sodium Chloride ([place] Nasal [place] 0.65%) 0 ml EA NARE QIDPRN PRN PRN Reason: Nasal Congestion Throat Lozenges (Cepastat Lozenges) 1 leticia PO Q2H PRN PRN Reason: Sore Throat Zolpidem Tartrate (Ambien) 5 mg PO HSPRN PRN PRN Reason: Insomnia
[2018-10-10] MEDS: Nicotine 14 MG PATCH TD SCH (20:20)
[2018-10-11] MEDS: Multivitamin W/ Minerals 1 TAB PO SCH (08:52)
[2018-10-11] MEDS: Levothyroxine Sodium 50 MCG TAB PO SCH (08:52)
[2018-10-11] MEDS: Amlodipine 10 MG TAB PO SCH (08:52)
[2018-10-11] MEDS: Cephalexin 250 MG CAP PO SCH ×2 (08:52→14:47)
[2018-10-11] MEDS: Famotidine 20 MG TAB PO SCH (08:52)
[2018-10-11] MEDS: Enoxaparin Sodium 40 MG/0.4 ML SYRINGE SC SCH (08:53)
[2018-10-11] MEDS: HYDROcodone/Acetaminophen 7.5/325 mg Tablet PO PRN ×2 (08:53→13:29)
[2018-10-11] MEDS ORDERED: Saccharomyces boulardii 250 MG CAP PO SCH (09:00)
--- NOTE | 2018-10-11 11:07 | PDOC.PN ---
- Subjective Encounter Start Date: 10/11/18 Encounter Start Time: 09:10 Patient seen and examined. No new complaints. No overnight events - Objective Resuscitation Status - Order Detail: 10/01/18 18:04 Resuscitation Status Routine Resuscitation Status: FULL: Full Resuscitation MAR Reviewed: Yes Vital Signs & Weight: Vital Signs (12 hours) Temp Pulse Resp BP Pulse Ox 10/11/18 08:55 98 10/11/18 08:52 65 10/11/18 07:39 97.8 F 65 16 115/79 98 Weight Admit Weight 180 lb 8 oz Weight 180 lb 8 oz I&O: 10/10/18 10/11/18 10/12/18 06:59 06:59 06:59 Intake Total 1800 550 Output Total 250 Balance 1550 550 Result Diagrams: 10/07/18 05:28 10/07/18 05:28 Phys Exam - Physical Examination Constitutional: NAD HEENT: PERRLA, moist MMs, sclera anicteric Neck: no JVD, supple Respiratory: no wheezing, no rales, no rhonchi Cardiovascular: RRR, no significant murmur, no rub Gastrointestinal: soft, non-tender, no distention, positive bowel sounds Musculoskeletal: no edema, pulses present wound vac in place Neurological: non-focal, normal sensation, moves all 4 limbs Lymphatic: no nodes Psychiatric: normal affect, A&O x 3 Skin: no rash, normal turgor Dx/Plan (1) Osteomyelitis of second toe of left foot Code(s): M86.9 - OSTEOMYELITIS, UNSPECIFIED Status: Acute Comment: s/p left 2nd toe amputation (2) Anxiety and depression Code(s): F41.9 - ANXIETY DISORDER, UNSPECIFIED; F32.9 - MAJOR DEPRESSIVE DISORDER, SINGLE EPISODE, UNSPECIFIED Status: Chronic (3) Chronic hepatitis Code(s): K73.9 - CHRONIC HEPATITIS, UNSPECIFIED Status: Chronic Comment: Hep C RNA +ve. Outpt follow up for treatment advised. per ID. (4) Hypertension Code(s): I10 - ESSENTIAL (PRIMARY) HYPERTENSION Status: Chronic Comment: BP still high.Add Norvasc.PRN antihypertensives (5) Hypothyroidism Code(s): E03.9 - HYPOTHYROIDISM, UNSPECIFIED Status: Chronic Comment: cont synthyroid (6) Thrombocytopenia Code(s): D69.6 - THROMBOCYTOPENIA, UNSPECIFIED Status: Chronic (7) Tobacco abuse Code(s): Z72.0 - TOBACCO USE Status: Chronic - Plan cont current plan of care, continue antibiotics * medication reviewed as below * symptomatic treatment * will discharge when wound vac arranged * discussed with podiatry and cleared. Review of Systems - Review of Systems ENT: negative: Ear Pain, Ear Discharge, Nose Pain, Nose Discharge, Nose Congestion, Mouth Pain, Mouth Swelling, Throat Pain, Throat Swelling, Other Respiratory: negative: Cough, Dry, Shortness of Breath, Hemoptysis, SOB with Excertion, Pleuritic Pain, Sputum, Wheezing Cardiovascular: negative: chest pain, palpitations, orthopnea, paroxysmal nocturnal dyspnea, edema, light headedness, other Gastrointestinal: negative: Nausea, Vomiting, Abdominal Pain, Diarrhea, Constipation, Melena, Hematochezia, Other Genitourinary: negative: Dysuria, Frequency, Incontinence, Hematuria, Retention , Other Musculoskeletal: negative: Neck Pain, Shoulder Pain, Arm Pain, Back Pain, Hand Pain, Leg Pain, Foot Pain, Other - Medications/Allergies Allergies/Adverse Reactions: Allergies Allergy/AdvReac Type Severity Reaction Status Date / Time No Known Drug Allergies Allergy Verified 10/01/18 21:40 Medications: Current Medications Acetaminophen (Tylenol) 650 mg PO Q4H PRN PRN Reason: Headache/Fever/Mild Pain (1-3) Hydrocodone Bitart/Acetaminophen (Mark 7.5/325) 1 tab PO Q4H PRN PRN Reason: Pain 4-6 Last Admin: 10/11/18 08:53 Dose: 1 tab Amlodipine Besylate (Norvasc) 10 mg PO DAILY [facility] Last Admin: 10/11/18 08:52 Dose: 10 mg Artificial Tears (Tears Naturale) 2 drop EA EYE PRN PRN PRN Reason: Dry Eyes Bisacodyl (Dulcolax) 10 mg [place] DAILYPRN PRN PRN Reason: Constipation Cephalexin (Keflex) 500 mg PO TID [facility] Last Admin: 10/11/18 08:52 Dose: 500 mg Enoxaparin Sodium (Lovenox) 40 mg SC 0900 [facility] Last Admin: 10/11/18 08:53 Dose: Not Given Famotidine (Pepcid) 20 mg PO BID [facility] Last Admin: 10/11/18 08:52 Dose: 20 mg Guaifenesin (Robitussin Sf) 200 mg PO Q4H PRN PRN Reason: Cough Hydralazine HCl (Apresoline) 10 mg SLOW IVP Q4H PRN PRN Reason: SBP > 180 and HR < 70 Iron/Minerals/Multivitamins (Theragran M) 1 tab PO DAILY [facility] Last Admin: 10/11/18 08:52 Dose: 1 tab Levothyroxine Sodium (Synthroid) 50 mcg PO DAILY [facility] Last Admin: 10/11/18 08:52 Dose: 50 mcg Loperamide HCl (Imodium) 2 mg PO PRN PRN PRN Reason: Diarrhea/Loose Stools Loratadine (Claritin) 10 mg PO DAILYPRN PRN PRN Reason: Sinus Symptoms Mineral Oil/White Petrolatum (Eucerin Cream) 0 gm TOP BIDPRN PRN PRN Reason: Dry Skin Nicotine (Nicoderm Patch) 14 mg TD Q24HR [facility] Last Admin: 10/10/18 20:20 Dose: 14 mg Ondansetron HCl (Zofran Odt) 4 mg PO Q6H PRN PRN Reason: Nausea/Vomiting Ondansetron HCl (Zofran) 4 mg IVP Q6H PRN PRN Reason: Nausea/Vomiting Saccharomyces Boulardii (Florastor) 250 mg PO DAILY [facility] Last Admin: 10/11/18 08:52 Dose: 250 mg Senna/Docusate Sodium (Senokot S) 2 tab PO BID PRN PRN Reason: Constipation Sertraline HCl (Zoloft) 150 mg PO HS [facility] Last Admin: 10/10/18 20:20 Dose: 150 mg Sodium Chloride (Flush - Normal Saline) 10 ml IVF Q12HR [facility] Last Admin: 10/11/18 09:02 Dose: Not Given Sodium Chloride (Flush - Normal Saline) 10 ml IVF PRN PRN PRN Reason: Saline Flush Sodium Chloride ([place] Nasal [place] 0.65%) 0 ml EA NARE QIDPRN PRN PRN Reason: Nasal Congestion Throat Lozenges (Cepastat Lozenges) 1 leticia PO Q2H PRN PRN Reason: Sore Throat Zolpidem Tartrate (Ambien) 5 mg PO HSPRN PRN PRN Reason: Insomnia
--- NOTE | 2018-10-11 12:55 | DIS ---
DATE OF ADMISSION: 10/01/2018 DATE OF DISCHARGE: 10/11/2018 ADDENDUM: Please see my discharge summary dictated on October 08, 2018. There is no change in my discharge summary. This patient has been evaluated by metal sander subsequently and his wound looks great. He still needs wound VAC and that is why we are waiting for wound care and wound VAC arrangement. He will continue above-mentioned medication. This patient was having some antibiotic-induced diarrhea and that is why we advised him to take symptomatic treatment. Florastor was added on discharge. I spoke with the metal sander and metal sander cleared him for discharge. At this point, the patient is stable for discharge as long as once we have outpatient wound care arranged. The patient is seen and examined at bedside today. Please see my progress note from today for further detail. Job ID: [id number]
[2018-10-11 14:50] VITALS: BP 128/77; TEMP 97.6
== END 2018-10-11 16:18 | disposition home or self-care (01) | DRG 504 ==
LOC: ERS 13:09 → ERHOLD 15:57 → T4-A 19:43
PROVIDERS: ADMIT Internal Medicine; ATTEND Internal Medicine
PROC: 0Y6S0Z0 Detachment at Left 2nd Toe, Complete, Open Approach (ICD-10-PCS; principal; 2018-10-06)
DX: M86.172 Other acute osteomyelitis, left ankle and foot (principal); L03.116 Cellulitis of left lower limb; I10 Essential (primary) hypertension; E03.9 Hypothyroidism, unspecified; F17.210 Nicotine dependence, cigarettes, uncomplicated; K73.9 Chronic hepatitis, unspecified; F41.9 Anxiety disorder, unspecified; F32.9 Major depressive disorder, single episode, unspecified; D69.6 Thrombocytopenia, unspecified; Z79.899 Other long term (current) drug therapy
CPT/HCPCS: 36415; 76705; 80048; 80053; 80202; 83605; 84439; 84443; 85025; 86706; 86803; 87070; 87077; 87186; 87205; 87324; 87340; 87449; 87522; 88305; 88307; 88311; 90471; 90732; 96365; 96367; 96375; G0009; J0692; J0696; J1650; J2001; J2250; J2270; J2405; J2543; J2704; J3010; J3370; J3490; J7050

== ENCOUNTER 2018-10-12 11:13 | Emergency (ER) | payer SELFPAY ==
[2018-10-12 12:43] LABS: ALT (SGPT) 211 U/L (8-55); AST (SGOT) 143 U/L (5-34); Albumin 4.2 g/dL (3.4-4.8); Alkaline Phosphatase 82 U/L (40-150); Anion Gap 14 mmol/L (10-20); BUN (Urea Nitrogen) 18 mg/dL (8.4-25.7); Bilirubin, Total 1.2 mg/dL (0.2-1.2); Calc. Creatinine Clearance 0 mL/min (70-130); Calcium 9.4 mg/dL (7.8-10.44); Carbon Dioxide 21 mmol/L (23-31); Chloride 104 mmol/L (98-107); Estimated GFR-MDRD 75; Globulin 3.2 g/dL (2.4-3.5); Glucose 211 mg/dL (80-115); Lipase 18 U/L (8-78); Potassium 3.9 mmol/L (3.5-5.1); Protein, Total 7.4 g/dL (5.8-8.1); Sodium 135 mmol/L (136-145)
[2018-10-12 12:51] LABS: #Basophils 0.1 thou/uL (0.0-0.2); #Eosinphils 0.2 thou/uL (0.0-0.7); #Lymphocytes 1.3 thou/uL (1.20-3.40); #Monocytes 0.4 thou/uL (0.11-0.59); #Neutrophils 8.2 thou/uL (1.40-6.50); %Basophils 0.6 % (0.0-1.0); %Eosinophils 1.7 % (0.0-10.0); %Lymphocytes 13.1 % (21.0-51.0); %Monocytes 3.5 % (0.0-10.0); %Neutrophils 81.1 % (42.0-75.0); Hemoglobin 16.6 g/dL (14.0-18.0); Mean Corpuscular HGB CONC 34.8 g/dL (32.0-36.0); Mean Corpuscular Hemoglobin 31.7 pg (27.0-31.0); Mean Corpuscular Volume 91.1 fL (78.0-98.0); Platelet Count 97 thou/uL (130-400); RBC Distribution Width 12.6 % (11.5-14.5); Red Blood Cell (RBC) Count 5.24 mill/uL (4.70-6.10); White Blood Cell (WBC) Count 10.1 thou/uL (4.8-10.8)
--- NOTE | 2018-10-12 14:10 | ULT ---
RIGHT UPPER QUADRANT ULTRASOUND: Date: 10/12/18 HISTORY: Right upper quadrant pain. COMPARISON: 10/03/18. FINDINGS: Exam limited due to body habitus and overlying bowel. There is mild irregularity of the surface of th e liver, suspicious for cirrhosis. No focal mass or intrahepatic ductal dilatation seen. No gallstone s, gallbladder wall thickening, or pericholecystic fluid is seen. The common duct measures 2.0 mm in diameter. No free fluid is seen in Morison's pouch. The pancreas is not well visualized due to overly ing bowel gas. The right kidney is normal. IMPRESSION: 1. No evidence of cholelithiasis. 2. Probable cirrhosis of the liver. POS: [facility]
== END 2018-10-12 13:09 | disposition home or self-care (01) ==
LOC: ERS 11:13
DX: K74.60 Unspecified cirrhosis of liver (principal); S98.132D Complete traumatic amputation of one left lesser toe, subsequent encounter; E03.9 Hypothyroidism, unspecified; G62.9 Polyneuropathy, unspecified; F17.210 Nicotine dependence, cigarettes, uncomplicated; I10 Essential (primary) hypertension; Z79.899 Other long term (current) drug therapy; X58.XXXD Exposure to other specified factors, subsequent encounter
CPT/HCPCS: 36415; 76705; 80053; 83690; 85025

== ENCOUNTER 2019-06-04 10:46 | Emergency (ER) | payer SELFPAY ==
[2019-06-04 11:54] LABS: ALT (SGPT) 297 U/L (8-55); AST (SGOT) 151 U/L (5-34); Albumin 4.4 g/dL (3.4-4.8); Alkaline Phosphatase 77 U/L (40-110); Anion Gap 17 mmol/L (10-20); BUN (Urea Nitrogen) 18 mg/dL (8.4-25.7); CK (CPK) 364 U/L (30-200); Calc. Creatinine Clearance 0 mL/min (70-130); Calcium 9.7 mg/dL (7.8-10.44); Carbon Dioxide 22 mmol/L (23-31); Chloride 105 mmol/L (98-107); Estimated GFR-MDRD 52; Globulin 3.2 g/dL (2.4-3.5); Glucose 108 mg/dL (80-115); Protein, Total 7.6 g/dL (5.8-8.1); Sodium 140 mmol/L (136-145)
[2019-06-04 11:55] LABS: Acetaminophen Less than 6.0 mcg/mL (10.0-30.0); Alcohol 231 mg/dL (Less than 10); Salicylate Less than 8.0 mg/dL (15.0-30.0)
[2019-06-04 12:24] LABS: Hemoglobin 17.3 g/dL (14.0-18.0); Mean Corpuscular Hemoglobin 33.1 pg (27.0-31.0); Mean Corpuscular Volume 92.1 fL (78.0-98.0); Mean Platelet Volume 7.5 fL (7.4-10.4); Platelet Count 152 thou/uL (130-400); RBC Distribution Width 12.4 % (11.5-14.5); Red Blood Cell (RBC) Count 5.23 mill/uL (4.70-6.10); White Blood Cell (WBC) Count 14.7 thou/uL (4.8-10.8)
[2019-06-04 12:32] LABS: Bilirubin Negative (Negative); Blood, Urine Negative (Negative); Clarity Clear (Clear); Glucose, Urine (Dipstick) Normal (Negative); Leukocyte Negative Leu/uL (Negative); Nitrite Negative (Negative); Protein, Urine (Dipstick) 10 mg/dL (Neg-Trace); Urobilinogen Normal mg/dL (Less than 2)
[2019-06-04 12:36] LABS: Band 1 % (5-11); Eosinophils 2 % (0-10); Lymphocytes 19 % (21-51); MDiff Complete? YES; Monocytes 4 % (0-10); Neutrophil 73 % (42-75); Platelet Morphology Comment Appears Adequate; RBC Morphology Normal; Reactive Lymphocytes 1 % (0-10)
[2019-06-04 12:44] LABS: Amphetamine Detected (NotDetected); Barbiturates Screen Not Detected (NotDetected); Benzodiazepine Screen Not Detected (NotDetected); Cocaine Metabolite Screen Not Detected (NotDetected); Medtox Control Line Valid? VALID (VALID); Medtox Reader # READER 4; Methadone Not Detected (NotDetected); Methamphetamine Detected (NotDetected); Opiate Screen Not Detected (NotDetected); Oxycodone Screen Not Detected (NotDetected); Phencyclidine (PCP) Not Detected (NotDetected); THC/Cannabinoid Screen Not Detected (NotDetected); Tricyclic Screen Not Detected (NotDetected)
[2019-06-04] MEDS ORDERED: Bacitracin 1 PK ONE (13:07)
[2019-06-04] MEDS ORDERED: risperiDONE 1 MG TAB ONE (23:32)
[2019-06-04] MEDS ORDERED: traZODone HCl 50 MG TAB ONE (23:32)
[2019-06-05] MEDS ORDERED: Adacel (T-DAP) 0.5 ML SYRINGE ONE (00:52)
[2019-06-05] MEDS ORDERED: traZODone HCl 50 MG TAB ONE (20:44)
[2019-06-05] MEDS ORDERED: Nicotine 14 MG PATCH ONE (20:44)
[2019-06-05] MEDS ORDERED: risperiDONE 1 MG TAB ONE (20:44)
[2019-06-05] MEDS ORDERED: Gabapentin 300 MG CAP PO SCH (20:45)
[2019-06-05] MEDS ORDERED: risperiDONE 1 MG TAB PO SCH (20:45)
[2019-06-06] MEDS ORDERED: Levothyroxine Sodium 25 MCG TAB PO SCH (07:15)
[2019-06-06] MEDS ORDERED: Amlodipine 10 MG TAB PO SCH (09:00)
[2019-06-06] MEDS ORDERED: Gabapentin 300 MG CAP PO SCH ×2 (09:00→12:00)
[2019-06-06] MEDS ORDERED: DULoxetine 60 MG CAP PO SCH (09:00)
[2019-06-06] MEDS ORDERED: Nicotine 14 MG PATCH ONE (14:06)
[2019-06-06] MEDS ORDERED: risperiDONE 1 MG TAB PO SCH (21:00)
[2019-06-07] MEDS ORDERED: Levothyroxine Sodium 25 MCG TAB PO SCH (06:00)
--- NOTE | 2019-06-11 10:56 | EKG ---
Test Reason : Blood Pressure : / mmHG Vent. Rate : 095 BPM Atrial Rate : 095 BPM P-R Int : 160 ms QRS Dur : 098 ms QT Int : 368 ms P-R-T Axes : 066 051 041 degrees QTc Int : 462 ms Normal sinus rhythm Normal ECG Confirmed by CIELO LANG, FERNIE Dey ([id number]), makeup editor GRAHAM MCGILL ([id number]) on 06/11/2019 10:56:22 AM Referred By: Confirmed By:FERNIE BUCK MD
== END 2019-06-04 17:14 ==
LOC: ERS 10:46
DX: S51.812A Laceration without foreign body of left forearm, initial encounter (principal); S30.811A Abrasion of abdominal wall, initial encounter; S20.319A Abrasion of unspecified front wall of thorax, initial encounter; R19.7 Diarrhea, unspecified; F10.10 Alcohol abuse, uncomplicated; E03.9 Hypothyroidism, unspecified; I10 Essential (primary) hypertension; F41.9 Anxiety disorder, unspecified; F32.9 Major depressive disorder, single episode, unspecified; F17.210 Nicotine dependence, cigarettes, uncomplicated; Z79.899 Other long term (current) drug therapy; Y90.2 Blood alcohol level of 40-59 mg/100 ml; X78.8XXA Intentional self-harm by other sharp object, initial encounter
CPT/HCPCS: 36415; 80053; 80306; 80307; 81003; 82550; 84443; 85025; 90471; 90715; 93005; 96360; 96361

== ENCOUNTER 2019-06-24 13:13 | Emergency (ER) | payer SELFPAY ==
[2019-06-24 14:10] LABS: #Eosinphils 0.1 thou/uL (0.0-0.7); #Lymphocytes 1.4 thou/uL (1.20-3.40); #Monocytes 0.3 thou/uL (0.11-0.59); #Neutrophils 5.5 thou/uL (1.40-6.50); %Basophils 0.6 % (0.0-1.0); %Eosinophils 1.5 % (0.0-10.0); %Lymphocytes 18.6 % (21.0-51.0); %Monocytes 4.6 % (0.0-10.0); %Neutrophils 74.6 % (42.0-75.0); Mean Corpuscular HGB CONC 34.8 g/dL (32.0-36.0); Mean Corpuscular Hemoglobin 32.7 pg (27.0-31.0); Mean Corpuscular Volume 93.9 fL (78.0-98.0); RBC Distribution Width 12.7 % (11.5-14.5); Red Blood Cell (RBC) Count 4.89 mill/uL (4.70-6.10); White Blood Cell (WBC) Count 7.3 thou/uL (4.8-10.8)
[2019-06-24 14:15] LABS: Mean Platelet Volume 7.7 fL (7.4-10.4); Platelet Count 103 thou/uL (130-400)
[2019-06-24 14:23] LABS: Platelet Morphology Comment Appears Decreased; RBC Morphology Normal
[2019-06-24 14:33] LABS: ALT (SGPT) 192 U/L (8-55); AST (SGOT) 91 U/L (5-34); Albumin 3.7 g/dL (3.4-4.8); Alkaline Phosphatase 81 U/L (40-110); Anion Gap 11 mmol/L (10-20); BUN (Urea Nitrogen) 14 mg/dL (8.4-25.7); Bilirubin, Total 0.5 mg/dL (0.2-1.2); CK (CPK) 66 U/L (30-200); Calc. Creatinine Clearance 0 mL/min (70-130); Calcium 9.3 mg/dL (7.8-10.44); Carbon Dioxide 22 mmol/L (23-31); Chloride 109 mmol/L (98-107); Estimated GFR-MDRD 64; Globulin 2.9 g/dL (2.4-3.5); Glucose 136 mg/dL (80-115); Protein, Total 6.6 g/dL (5.8-8.1); Sodium 138 mmol/L (136-145)
[2019-06-24 14:39] LABS: Acetaminophen Less than 6.0 mcg/mL (10.0-30.0); Alcohol Less than 10 mg/dL (Less than 10); Salicylate Less than 8.0 mg/dL (15.0-30.0)
--- NOTE | 2019-06-24 14:42 | RAD ---
PORTABLE CHEST: Date: 06/24/2019 HISTORY: Cough. COMPARISON: 07/25/18 study. FINDINGS: Heart size is within normal limits. Chronic appearing lung changes are seen. No focal infiltrative pr ocess. IMPRESSION: No active intrathoracic disease. POS: [facility]
[2019-06-24 15:51] LABS: Bilirubin Negative (Negative); Blood, Urine Negative (Negative); Clarity Clear (Clear); Glucose, Urine (Dipstick) Normal (Negative); Leukocyte Negative Leu/uL (Negative); Nitrite Negative (Negative); Protein, Urine (Dipstick) 10 mg/dL (Neg-Trace)
[2019-06-24 15:59] LABS: Cocaine Metabolite Screen Not Detected (NotDetected); Medtox Reader # READER 4; Methamphetamine Detected (NotDetected); Phencyclidine (PCP) Not Detected (NotDetected); THC/Cannabinoid Screen Not Detected (NotDetected)
[2019-06-24 16:00] LABS: Amphetamine Not Detected (NotDetected); Barbiturates Screen Not Detected (NotDetected); Benzodiazepine Screen Not Detected (NotDetected); Medtox Control Line Valid? VALID (VALID); Methadone Not Detected (NotDetected); Opiate Screen Not Detected (NotDetected); Oxycodone Screen Not Detected (NotDetected); Tricyclic Screen Not Detected (NotDetected)
[2019-06-24] MEDS ORDERED: Ondansetron ODT 4 MG TAB ONE (17:14)
[2019-06-24] MEDS ORDERED: traZODone HCl 50 MG TAB ONE (20:00)
[2019-06-24] MEDS ORDERED: risperiDONE 1 MG TAB ONE (20:00)
[2019-06-24] MEDS ORDERED: Gabapentin 300 MG CAP PO SCH (21:00)
[2019-06-24] MEDS ORDERED: Nicotine 14 MG PATCH ONE (21:11)
[2019-06-24] MEDS ORDERED: Nicotine 14 MG PATCH TOP SCH (22:00)
[2019-06-25] MEDS ORDERED: Nicotine 14 MG PATCH TOP SCH (08:00)
[2019-06-25] MEDS ORDERED: Levothyroxine Sodium 50 MCG TAB PO SCH (15:00)
[2019-06-25] MEDS ORDERED: hydrOXYzine 25 MG TAB PO SCH (19:30)
[2019-06-25] MEDS ORDERED: traZODone HCl 150 MG TAB PO SCH (20:00)
[2019-06-25] MEDS ORDERED: risperiDONE 3 MG TAB PO SCH (20:00)
[2019-06-25] MEDS ORDERED: hydrOXYzine 25 MG TAB ONE (21:21)
[2019-06-26] MEDS ORDERED: Levothyroxine Sodium 50 MCG TAB PO SCH (06:00)
[2019-06-26] MEDS ORDERED: Gabapentin 300 MG CAP PO SCH (15:15)
[2019-06-26] MEDS ORDERED: Amlodipine 5 MG TAB ONE (22:12)
[2019-06-26] MEDS ORDERED: hydrOXYzine 25 MG TAB ONE (22:12)
[2019-06-26] MEDS ORDERED: hydrOXYzine 25 MG TAB PO SCH (22:30)
[2019-06-26] MEDS ORDERED: Amlodipine 10 MG TAB PO SCH (22:45)
[2019-06-26] MEDS ORDERED: Nicotine 14 MG PATCH ONE (22:46)
[2019-06-27] MEDS ORDERED: Amlodipine 5 MG TAB ONE (10:08)
[2019-06-27] MEDS ORDERED: hydrOXYzine 25 MG TAB PO SCH (21:00)
[2019-06-27] MEDS ORDERED: Amlodipine 10 MG TAB PO SCH (21:00)
[2019-06-28] MEDS ORDERED: hydrOXYzine 25 MG TAB ONE (20:50)
[2019-06-28] MEDS ORDERED: risperiDONE 1 MG TAB ONE (20:50)
[2019-06-28] MEDS ORDERED: traZODone HCl 50 MG TAB ONE (20:50)
== END 2019-06-29 05:11 ==
LOC: ERS 13:13
DX: S41.111A Laceration without foreign body of right upper arm, initial encounter (principal); R44.0 Auditory hallucinations; I87.8 Other specified disorders of veins; F41.9 Anxiety disorder, unspecified; F32.9 Major depressive disorder, single episode, unspecified; F17.210 Nicotine dependence, cigarettes, uncomplicated; E03.9 Hypothyroidism, unspecified; I10 Essential (primary) hypertension; G62.9 Polyneuropathy, unspecified; Z79.899 Other long term (current) drug therapy
CPT/HCPCS: 36415; 71045; 80053; 80306; 80307; 81003; 82550; 84443; 85025; 93005; Q0162

== ENCOUNTER 2019-07-06 21:56 | Emergency (ER) | payer SELFPAY ==
[2019-07-06 22:39] LABS: #Eosinphils 0.1 thou/uL (0.0-0.7); #Lymphocytes 1.6 thou/uL (1.20-3.40); #Monocytes 0.4 thou/uL (0.11-0.59); #Neutrophils 4.6 thou/uL (1.40-6.50); %Basophils 0.4 % (0.0-1.0); %Eosinophils 1.3 % (0.0-10.0); %Lymphocytes 23.4 % (21.0-51.0); %Monocytes 6.4 % (0.0-10.0); %Neutrophils 68.5 % (42.0-75.0); Mean Corpuscular HGB CONC 35.1 g/dL (32.0-36.0); Mean Platelet Volume 7.7 fL (7.4-10.4); Platelet Count 73 thou/uL (130-400); RBC Distribution Width 12.4 % (11.5-14.5); Red Blood Cell (RBC) Count 4.56 mill/uL (4.70-6.10); White Blood Cell (WBC) Count 6.7 thou/uL (4.8-10.8)
[2019-07-06 22:57] LABS: Acetaminophen Less than 6.0 mcg/mL (10.0-30.0); Alcohol 72 mg/dL (Less than 10); CK (CPK) 120 U/L (30-200); Magnesium 1.7 mg/dL (1.6-2.6); Salicylate Less than 8.0 mg/dL (15.0-30.0)
[2019-07-06 23:04] LABS: ALT (SGPT) 191 U/L (8-55); AST (SGOT) 110 U/L (5-34); Albumin 3.8 g/dL (3.4-4.8); Alkaline Phosphatase 77 U/L (40-110); Anion Gap 14 mmol/L (10-20); BUN (Urea Nitrogen) 11 mg/dL (8.4-25.7); Bilirubin, Total 0.5 mg/dL (0.2-1.2); Calc. Creatinine Clearance 0 mL/min (70-130); Calcium 8.9 mg/dL (7.8-10.44); Carbon Dioxide 23 mmol/L (23-31); Chloride 107 mmol/L (98-107); Estimated GFR-MDRD 80; Globulin 3.1 g/dL (2.4-3.5); Glucose 106 mg/dL (80-115); Lipase 37 U/L (8-78); Potassium 3.7 mmol/L (3.5-5.1); Protein, Total 6.9 g/dL (5.8-8.1); Sodium 140 mmol/L (136-145)
[2019-07-07 00:42] LABS: Amphetamine Not Detected (NotDetected); Barbiturates Screen Not Detected (NotDetected); Benzodiazepine Screen Not Detected (NotDetected); Cocaine Metabolite Screen Not Detected (NotDetected); Medtox Control Line Valid? VALID (VALID); Medtox Reader # READER 1; Methadone Not Detected (NotDetected); Methamphetamine Not Detected (NotDetected); Opiate Screen Not Detected (NotDetected); Oxycodone Screen Not Detected (NotDetected); Phencyclidine (PCP) Not Detected (NotDetected); THC/Cannabinoid Screen Not Detected (NotDetected); Tricyclic Screen Not Detected (NotDetected)
[2019-07-07] MEDS ORDERED: DULoxetine 60 MG CAP PO SCH (11:45)
[2019-07-07] MEDS ORDERED: Finasteride 5 MG TAB PO SCH (11:45)
[2019-07-07] MEDS ORDERED: Amlodipine 10 MG TAB PO SCH (11:45)
[2019-07-07] MEDS ORDERED: Levothyroxine Sodium 25 MCG TAB PO SCH (11:45)
[2019-07-07] MEDS ORDERED: Gabapentin 300 MG CAP PO SCH ×2 (11:45→15:00)
[2019-07-07] MEDS ORDERED: Nicotine 14 MG PATCH TD SCH (15:00)
[2019-07-07] MEDS ORDERED: Nicotine 14 MG PATCH ONE (17:08)
[2019-07-07] MEDS ORDERED: traZODone HCl 150 MG TAB PO SCH (21:00)
[2019-07-07] MEDS ORDERED: Prazosin HCl 1 MG CAP PO SCH (21:00)
[2019-07-07] MEDS ORDERED: risperiDONE 3 MG TAB PO SCH (21:00)
[2019-07-08] MEDS ORDERED: Levothyroxine Sodium 25 MCG TAB PO SCH (06:00)
[2019-07-08] MEDS ORDERED: Amlodipine 10 MG TAB PO SCH (09:00)
[2019-07-08] MEDS ORDERED: DULoxetine 60 MG CAP PO SCH (09:00)
[2019-07-08] MEDS ORDERED: Nicotine 14 MG PATCH ONE (14:58)
[2019-07-08] MEDS ORDERED: Nicotine 14 MG PATCH TOP SCH (15:00)
[2019-07-08] MEDS ORDERED: Finasteride 5 MG TAB PO SCH (21:00)
[2019-07-08] MEDS ORDERED: traZODone HCl 50 MG TAB ONE (23:11)
[2019-07-09] MEDS ORDERED: Finasteride 5 MG TAB PO SCH (08:45)
[2019-07-09] MEDS ORDERED: traZODone HCl 50 MG TAB ONE (20:28)
[2019-07-09] MEDS ORDERED: risperiDONE 1 MG TAB ONE (20:28)
== END 2019-07-10 16:38 ==
LOC: ERS 21:56
DX: F32.9 Major depressive disorder, single episode, unspecified (principal); F10.10 Alcohol abuse, uncomplicated; E03.9 Hypothyroidism, unspecified; I10 Essential (primary) hypertension; G62.9 Polyneuropathy, unspecified; F41.9 Anxiety disorder, unspecified; F17.210 Nicotine dependence, cigarettes, uncomplicated
CPT/HCPCS: 36415; 80053; 80306; 80307; 82550; 83690; 83735; 84443; 85025; 93005

== ENCOUNTER 2019-10-23 22:05 | Emergency (ER) | payer MEDICAID, SELFPAY ==
[2019-10-23 22:55] LABS: #Basophils 0.1 thou/uL (0.0-0.2); #Eosinphils 0.3 thou/uL (0.0-0.7); #Lymphocytes 2.7 thou/uL (1.20-3.40); #Monocytes 0.7 thou/uL (0.11-0.59); #Neutrophils 5.9 thou/uL (1.40-6.50); %Basophils 0.8 % (0.0-1.0); %Eosinophils 3.3 % (0.0-10.0); %Monocytes 6.8 % (0.0-10.0); %Neutrophils 61.2 % (42.0-75.0); Hemoglobin 18.1 g/dL (14.0-18.0); Mean Corpuscular HGB CONC 34.8 g/dL (32.0-36.0); Mean Corpuscular Hemoglobin 33.7 pg (27.0-31.0); Mean Corpuscular Volume 96.9 fL (78.0-98.0); Mean Platelet Volume 7.2 fL (7.4-10.4); Platelet Count 103 thou/uL (130-400); RBC Distribution Width 14.5 % (11.5-14.5); Red Blood Cell (RBC) Count 5.36 mill/uL (4.70-6.10); White Blood Cell (WBC) Count 9.7 thou/uL (4.8-10.8)
[2019-10-23 23:15] LABS: ALT (SGPT) 190 U/L (8-55); AST (SGOT) 153 U/L (5-34); Albumin 4.1 g/dL (3.4-4.8); Alcohol 268 mg/dL (Less than 10); Alkaline Phosphatase 93 U/L (40-110); Anion Gap 15 mmol/L (10-20); BUN (Urea Nitrogen) 7 mg/dL (8.4-25.7); Bilirubin, Total 1.2 mg/dL (0.2-1.2); Calc. Creatinine Clearance 0 mL/min (70-130); Calcium 9.1 mg/dL (7.8-10.44); Carbon Dioxide 24 mmol/L (23-31); Chloride 100 mmol/L (98-107); Estimated GFR-MDRD 70; Globulin 3.6 g/dL (2.4-3.5); Glucose 100 mg/dL (80-115); Protein, Total 7.7 g/dL (5.8-8.1); Sodium 135 mmol/L (136-145)
[2019-10-23 23:16] LABS: Acetaminophen Less than 6.0 mcg/mL (10.0-30.0); Alcohol 260 mg/dL (Less than 10); Salicylate Less than 8.0 mg/dL (15.0-30.0)
[2019-10-23] MEDS ORDERED: Ondansetron ODT 4 MG TAB ONE (23:18)
[2019-10-23] MEDS ORDERED: Famotidine 20 MG TAB ONE (23:18)
[2019-10-24] MEDS ORDERED: Ondansetron PF 4 MG/2 ML Vial ONE ×2 (02:08→08:09)
[2019-10-24 02:12] LABS: Amphetamine Not Detected (NotDetected); Barbiturates Screen Not Detected (NotDetected); Benzodiazepine Screen Not Detected (NotDetected); Cocaine Metabolite Screen Not Detected (NotDetected); Medtox Control Line Valid? VALID (VALID); Medtox Reader # READER 4; Methadone Not Detected (NotDetected); Methamphetamine Not Detected (NotDetected); Opiate Screen Not Detected (NotDetected); Oxycodone Screen Not Detected (NotDetected); Phencyclidine (PCP) Not Detected (NotDetected); THC/Cannabinoid Screen Not Detected (NotDetected); Tricyclic Screen Not Detected (NotDetected)
== END 2019-10-24 09:10 | disposition home or self-care (01) ==
LOC: ERS 22:05
DX: F10.10 Alcohol abuse, uncomplicated (principal); I10 Essential (primary) hypertension; E03.9 Hypothyroidism, unspecified; F41.9 Anxiety disorder, unspecified; F32.9 Major depressive disorder, single episode, unspecified; F17.210 Nicotine dependence, cigarettes, uncomplicated; R11.0 Nausea; Y90.4 Blood alcohol level of 80-99 mg/100 ml; Z79.899 Other long term (current) drug therapy
CPT/HCPCS: 36415; 80053; 80306; 80307; 82550; 84443; 85025; 94760; 96361; 96374; 96376; J2405; Q0162

== ENCOUNTER 2019-10-27 22:46 | Emergency (ER) | payer MEDICAID, OTHER ==
[2019-10-27 23:47] LABS: #Basophils 0.1 thou/uL (0.0-0.2); #Eosinphils 0.3 thou/uL (0.0-0.7); #Monocytes 0.7 thou/uL (0.11-0.59); #Neutrophils 5.2 thou/uL (1.40-6.50); %Basophils 1.2 % (0.0-1.0); %Eosinophils 3.6 % (0.0-10.0); %Lymphocytes 32.3 % (21.0-51.0); %Monocytes 7.6 % (0.0-10.0); %Neutrophils 55.4 % (42.0-75.0); Hemoglobin 18.7 g/dL (14.0-18.0); Mean Corpuscular HGB CONC 34.1 g/dL (32.0-36.0); Mean Corpuscular Hemoglobin 32.6 pg (27.0-31.0); Mean Corpuscular Volume 95.7 fL (78.0-98.0); Mean Platelet Volume 7.2 fL (7.4-10.4); Platelet Count 108 thou/uL (130-400); Platelet Morphology Comment Appears Decreased; RBC Distribution Width 14.5 % (11.5-14.5); Red Blood Cell (RBC) Count 5.74 mill/uL (4.70-6.10); White Blood Cell (WBC) Count 9.3 thou/uL (4.8-10.8)
[2019-10-27 23:59] LABS: Acetaminophen Less than 6.0 mcg/mL (10.0-30.0); Alcohol 279 mg/dL (Less than 10); Salicylate Less than 8.0 mg/dL (15.0-30.0)
[2019-10-28 00:23] LABS: Albumin 3.9 g/dL (3.4-4.8)
[2019-10-28 00:24] LABS: Chloride 105 mmol/L (98-107); Potassium 3.8 mmol/L (3.5-5.1); Sodium 138 mmol/L (136-145)
[2019-10-28 00:25] LABS: Calcium 8.6 mg/dL (7.8-10.44)
[2019-10-28 00:26] LABS: Globulin 3.3 g/dL (2.4-3.5); Glucose 95 mg/dL (80-115); Protein, Total 7.2 g/dL (5.8-8.1)
[2019-10-28 00:27] LABS: Anion Gap 14 mmol/L (10-20); Carbon Dioxide 23 mmol/L (23-31)
[2019-10-28 00:28] LABS: Bilirubin, Total 0.9 mg/dL (0.2-1.2)
[2019-10-28 00:29] LABS: Alkaline Phosphatase 99 U/L (40-110); Calc. Creatinine Clearance 0 mL/min (70-130); Estimated GFR-MDRD 79
[2019-10-28 00:30] LABS: BUN (Urea Nitrogen) 6 mg/dL (8.4-25.7)
[2019-10-28 00:31] LABS: AST (SGOT) 177 U/L (5-34)
[2019-10-28 00:32] LABS: ALT (SGPT) 204 U/L (8-55); CK (CPK) 261 U/L (30-200)
[2019-10-28] MEDS ORDERED: chlordiazePOXIDE HCl 25 MG CAP ONE (01:52)
[2019-10-28 02:36] LABS: Bilirubin Negative (Negative); Blood, Urine Negative (Negative); Clarity Clear (Clear); Glucose, Urine (Dipstick) Normal (Negative); Leukocyte Negative Leu/uL (Negative); Nitrite Negative (Negative); Protein, Urine (Dipstick) Negative (Neg-Trace); Urobilinogen Normal mg/dL (Less than 2)
[2019-10-28 02:49] LABS: Amphetamine Not Detected (NotDetected); Barbiturates Screen Not Detected (NotDetected); Benzodiazepine Screen Not Detected (NotDetected); Cocaine Metabolite Screen Not Detected (NotDetected); Medtox Control Line Valid? VALID (VALID); Medtox Reader # READER 4; Methadone Not Detected (NotDetected); Methamphetamine Not Detected (NotDetected); Opiate Screen Not Detected (NotDetected); Oxycodone Screen Not Detected (NotDetected); Phencyclidine (PCP) Not Detected (NotDetected); THC/Cannabinoid Screen Not Detected (NotDetected); Tricyclic Screen Not Detected (NotDetected)
[2019-10-28] MEDS ORDERED: Ondansetron PF 4 MG/2 ML Vial ONE ×2 (06:54→11:08)
[2019-10-28] MEDS ORDERED: Diazepam 5 MG TAB ONE (11:53)
== END 2019-10-28 16:16 | disposition short-term general hospital (02) ==
LOC: ERS 22:46
DX: R45.851 Suicidal ideations (principal); F10.10 Alcohol abuse, uncomplicated; Y90.3 Blood alcohol level of 60-79 mg/100 ml; E03.9 Hypothyroidism, unspecified; I10 Essential (primary) hypertension; F41.9 Anxiety disorder, unspecified; F32.9 Major depressive disorder, single episode, unspecified; B19.20 Unspecified viral hepatitis C without hepatic coma; F17.210 Nicotine dependence, cigarettes, uncomplicated; Z79.899 Other long term (current) drug therapy
CPT/HCPCS: 36415; 80053; 80306; 80307; 81003; 82550; 83690; 84443; 85025; 96374; 96376; J2405